=== PATIENT | male | born 1970 | race Caucasian/White ===

== ENCOUNTER 2018-04-10 13:13 | Inpatient (IN) | payer MEDICAID ==
[2018-04-10 14:31] LABS: PLATELET COUNT 309 10^3/uL (150-400)
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
--- NOTE | 2018-04-11 09:48 | ASMTTCLDSP ---
TLC Discharge Disposition Disposition: Answers: Admit Disposition Notes: Notes: Admit 3N. Discharge Concerns/Recommendations: Notes: In consultation with [facility] ED physician, Raphael Worthington MD and on-call psychiatrist, Malik Nuno MD, both concurred that pt appears to meet 27-65 criteria requiring psychiatric hospitalization as pt appears to be at risk of harm to self/gravely disabled due to a mental illness condition. Pt was given the 3N prohibited belongings list while in the ED. Was patient given the Answers: Yes Inpatient Behavioral Health Prohibited Belongings List while in the ED? For inpatient Malik Nuno MD admission, the following psychiatrist agreed to accept patient for admission to Behavioral Health ([facility]): Type of Hold: Answers: M1/72-hour Hold Hold initiated by: Answers: Other Notes: [facility] Clinician Date Signed: 04/11/2018 09:48 AM Electronically Signed By:Grant Calzada
[2018-04-11] MEDS ORDERED: MAG HYDROX/AL HYDROX/SIMETH 30 ML UDCUP PO PRN (11:48)
[2018-04-11] MEDS ORDERED: OLANZapine DISINTEGR 10 MG TAB PO PRN (11:48)
[2018-04-11] MEDS ORDERED: ACETAMINOPHEN 325 MG TAB PO PRN (11:48)
[2018-04-11] MEDS ORDERED: MAGNESIUM HYDROXIDE 30 ML UDCUP PO PRN (11:48)
[2018-04-11] MEDS ORDERED: PALIPERIDONE 9 MG TAB.ER PO ONE (11:49)
[2018-04-11] MEDS ORDERED: PALIPERIDONE 3 MG TAB.ER PO ONE (12:30)
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
[2018-04-11] MEDS: NICOTINE POLACRILEX 2 MG GUM B PRN (12:56)
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
[2018-04-11] MEDS ORDERED: DIVALPROEX ER 500 MG TAB PO SCH (21:00)
[2018-04-12] MEDS: NICOTINE POLACRILEX 2 MG GUM B PRN (02:19)
[2018-04-12 06:30] VITALS: BP 127/64
--- NOTE | 2018-04-12 08:28 | SOAPPROG ---
SOAP Progress Note Assessment/Plan: Assessment: Schizoaffective disorder, bipolar type, complicated by substance use and non- adherence to treatment. Stimulant use disorder, severe. Cannabis use disorder , severe. Non-adherence to medical treatment. Homelessness. No improvement noted. (see subjective/objective note). Patient is not safe to discharge at this time as patient continues to exhibit signs of psychosis, and express psychosis symptoms. Patient requires continued inpatient care because of current psychosis, and requires inpatient level of care to stabilize in order to no longer be a danger to himself and gravely disabled due to mental illness. Patient currently expressing command auditory hallucinations to not eat and to kill himself. Patient could benefit from continued inpatient hospitalization for crisis stabilization, safety, and medication evaluation. Plan: (1) Psychotropic medications: After reviewing options, risks, and benefits patient agrees to continue current medications. No medication changes at this time as more time is needed to determine ongoing tolerability and efficacy. Plan is to continue to observe patient for response and side effects from medications, and ongoing monitoring and evaluation. (2) Review with patient informed consent and recommendations for psychotropic medication treatment listed below (3) Labs: no additional labs at this time (4) Therapy: continue milieu and group therapy (5) Further investigation including gathering information from patients relatives and review of past case records to inform treatment plan. (6) Safety/Wellness plan and follow-up outpatient appointments to be established prior to discharge. Next steps are for patient to meet with care transition manager to plan a safe discharge plan and establish outpatient services for ongoing treatment. (7) Confer with inpatient treatment team regarding treatment plan. (8) Legal status: M1, to sign in voluntary when M1 expires (9) Consider discharge next week if patient is in stable condition, safe, and has a safe discharge plan. (10) Substance abuse interventions: methamphetamine and cannabis (11) Nursing care orders to encourage fluids and nourishment PSYCHOTROPIC MEDICATION TREATMENT INFORMED CONSENT and RECOMMENDATIONS: Review nature of condition, diagnosis, and prognosis. Review nature and purpose of psychotropic medication treatment. Review type of psychotropic medications being ordered. Review risk and benefits of psychotropic medication treatment. Review probable length of time patient will need to take medications. Review risk and benefits of not undergoing psychotropic medication treatment. Review alternative treatments to psychotropic medications. Review psychotropic medications contraindications, drug-drug interactions, side effects, and importance of reporting any side effects to a psychiatric provider or nurse during inpatient hospitalization, and upon discharge to patients psychiatric outpatient provider, primary care provider, or other health managed care analyst. Review importance of asking a nurse, psychiatric provider, or primary care provider any questions or problems concerning the psychotropic medications. Verify patient understands the information that has been provided, and understands, accepts, and agrees to psychotropic medications. Review patients safety plan and importance of patient to report to staff while hospitalized if patient is ever a danger to self/others, or unable to care for self, and upon discharge, the importance for patient to contact [facility] or [facility], or go to the nearest emergency room, if patient is ever a danger to self/others, or unable to care for self. Recommend that upon discharge patient establish medication management treatment with a psychiatric provider, establishes routine therapy appointments, and follow-up with primary care provider. Verify patient understands and agrees to these recommendations. 04/12/18 08:28 Subjective: Following up with patient for evaluation of psychosis and safety. Patient reports, "I am okay, I do not want to eat breakfast because the food is poisoned." Patient reports command auditory hallucinations telling him not to eat because food is poisoned. Patient states command hallucinations telling him to "just end it, get it over with, and kill yourself." Patient expresses the following psychiatric symptoms auditory hallucinations. Patient reports taking medications as prescribed, and describes response to medications as poor. Patient does not report undesirable side effects from the medications, and agrees to continue current medications. Patient reports appetite as poor, and reports he has not eaten since his admission yesterday afternoon. Patient describes getting 8 hours of sleep. Objective: Vital Signs Temp Pulse Resp BP Pulse Ox 36.8 C 101 H 15 127/64 H 94 04/12/18 06:00 04/12/18 06:00 04/12/18 06:00 04/12/18 06:00 04/12/18 06:00 NURSING REPORT: Consulted with nursing for update on patients progress in treatment. Nurses report patient is not engaged in treatment, is withdrawn to room, is not attending groups, slept 10 hours, expresses the following psychiatric symptoms: auditory hallucinations, paranoia; exhibits the following psychiatric symptoms: paranoid, withdrawn; is not eating any meals (patient has not eaten any meals since arriving on the unit), is agreeable to medications and taking as prescribed with no report of side effects, with no s/s of EPS/ akathisia, and denies SI/HI, denies visual hallucinations, and denies delusions. Reports auditory hallucinations to not eat because food is poisoned. DIRECTOR EMPLOYMENT UPDATE: currently setting up OP appointments. MSE: The patient is an under-nourished male looking older than chronological age. Attire is inappropriate and dress is hospital garb, and is disheveled. Grooming status is inappropriate and disheveled. Ambulation is independent. Gait is normal and coordinated. Posture is normal and relaxed. Eye contact is appropriate, and adequate. Motor activity is appropriate with purposeful, organized, coordinated movements; with no involuntary movements. Attitude is uncooperative and guarded. Patient appears disinterested and does not relate well to this interviewer. Language production is unspontaneous. Rate is hesitant. Latency of response is prolonged, with sad tone, and low volume, and amount is sparse. Articulation is clear. Patient reports mood as okay with constricted, blunted, flat, incongruent and inappropriate affect. Patients thought process is non-linear, disorganized, illogical. Associations are loose. Patient does report suicidal thoughts (command hallucinations). Patient reports auditory, denies visual hallucinations. Patient reports paranoid delusions regarding food being poisoned. Patient does not appear to be attending to internal stimuli. Patients attention and concentration are poor. Patient is oriented to person, place, time, and situation. Patients insight is poor. Patients judgment is poor. No evidence of gross cognitive dysfunction at any point during the interview. No evidence of apparent dysfunction in recent or remote memory. SUBSTANCE ABUSE BRIEF INTERVENTION: Brief intervention regarding the risks of methamphetamine and cannabis abuse is provided to patient with goal to reduce the risk of harm that could result from the continued use of methamphetamine and cannabis, with the general aim to investigate the problem, raise awareness of problem, develop a solution with the patient, recommend a specific change or activity, and motivate the patient toward change. Assess substance abuse behavior and give supportive advice about harm reduction, recommend a reduction in hazardous/at-risk consumption patterns, and facilitate referrals for additional specialized treatment with dog day care attendant. Intermediate goal is for the patient to quit use and attend OP substance abuse treatment. Intervention focus on intermediate goals to allow for more immediate success in the treatment process to keep the patient motivated. Review following with patient: Cannabis use risks: Short-term use: impaired short-term memory, impaired motor coordination, altered judgement, in high doses paranoia and psychosis. Long-term use addiction, diminished life satisfaction and achievement, symptoms of chronic bronchitis, and increased risk of chronic psychosis disorders if predisposition to such disorders. In withdrawal anger, aggression irritability, anxiety and nervousness, decreased appetite or weight loss, restlessness, and sleep difficulties with strange dreams. Methamphetamine use risks: Short-term: insomnia, irritability, aggressive behavior, hallucinations, delusions, intellectual deficits, anxiety, depression , convulsions, damage to blood vessels in the brain causing strokes, high fevers , collapse of the circulatory system. Long-term: damage to nerve pathways, maybe irreversibly; overstimulation to dopamine impairing dopamine transport and reducing efficiency of dopamine receptors, the reward system becomes worn out, leading to inability to experience pleasure for years. - Time Spent With Patient Time Spent With Patient: 15 minutes, met with patient individually. - Pending Discharge Pending Discharge Within 24 Hours: No Pending Discharge Within 48 Hours: No ICD10 Worksheet Patient Problems: Problems Problem Status Onset Acute psychosis Acute Cannabis use disorder, severe, dependence Acute Homelessness Acute Stimulant use disorder Acute Schizoaffective disorder, bipolar type Chronic
[2018-04-12] MEDS ORDERED: PALIPERIDONE 3 MG TAB.ER PO SCH (09:00)
--- NOTE | 2018-04-12 09:12 | ASMTBHMTP ---
Master Treatment Plan Master Treatment Plan Answers: Depressed Mood with for: Suicidal Ideation Date: 04/12/2018 Diagnosis on Admission: Schizoaffective Disorder, Bipolar Type 295.70 (F25.0) Expected length of stay: 3-5 days Reason for admission: Notes: The patient stated, "Suicidal; ending my life... cutting." He endorsed current SI rating himself 10/10. He denied HI rating himself 0/10. The patient reported auditory hallucinations, stating "I'm hearing voices; they tell me all kinds of things... End your life...There is poison in the food;" he rated AH 8/10. The patient endorsed feeling anxiety "a little" ad depression rating himself a 10/10. The patient reported that he has been off medication for the past few weeks; he stated that he recalls being prescribed Clozaril, unknown dosage. He can't remember the other names of his medications and reported having been on many different psychiatric medications throughout his life. Patient's stated presenting problems: Notes: The patient is refusing to eat; he has not eaten since he arrived on the unit. He reported being discourage by . He stated, "All kinds of life issues" including a "sore lymphnode" which is causing the patient pain when he swallows. The nurse and FINANCIAL REPORT SERVICE SALES AGENT have been notified and a consult requested. The patient reported having lived a the homeless care home prior to admission, he stated, "I don't want to go back to the care home at least not immediately because everyone is talking about me and plotting against me. There are too many people at the care home and I'm having a hard time; I can't think. I want to get this out of my system otherwise it will be the same old thing." Patient's goals for treatment: Notes: The patient stated, "Hopefully, I'll get medications that will work and make me feel better and then I can go to respite after this." Patient's strengths: Notes: The patient stated, "I don't think I have strengths." CC discussed with patient their motivation and willingness for treatment. Identify supports outside of hospital: Notes: The patient stated, "No; I don't have any family." Discharge criteria: Notes: Suicidal ideation will resolve and patient will have plan to safely manage recurrent suicidal ideation. Initial disposition plan/considerations: Notes: The patient stated, "I would like to go to respite for a few weeks to try and find a place to rent with my social security." Master Treatment Plan Required Signatures Psychiatrist signature: Answers: Psychiatrist: RN on-shift signature: Answers: RN: Patient signature: Answers: Patient: Date Signed: 04/12/2018 09:11 AM Electronically Signed By:Sonia Hummel
--- NOTE | 2018-04-12 19:45 | BDS ---
REASON FOR ADMISSION: From the ED note dated 04/10/2018, the patient presented to the ED on an M1 Psychiatric Hold from [facility]. The patient has been off his medications for the treatment of schizoaffective disorder. The patient reported command hallucinations to kill himself. The patient denied drug and alcohol use. The patient was admitted involuntarily on an M1 Hold due to being gravely disabled due to a mental illness. The patient was admitted for safety, crisis stabilization, and medication evaluation. ADMITTING DIAGNOSES: 1. Schizoaffective disorder, bipolar type. 2. Stimulant use disorder, severe. 3. Cannabis use disorder, severe. 4. Homelessness. ADMISSION PHYSICAL EXAM: The patient was seen by Dr. Guadarrama on 04/11/2018, for an Internal Medicine consultation for medical clearance for inpatient Behavioral Health stay. Dr. Guadarrama reported he saw no medical contraindications to the patient's continued stay in the Inpatient Behavioral Health unit or to any psychiatric medications and procedures. For further details, please refer to Dr. Guadarrama's Internal Medicine consultation note dated 04/11/2018. ADMISSION LABS: CBC from 04/10/2018, within normal limits. Chemistry from , within normal limits. Fasting lipid panel from 04/10/2018, within normal limits. Hemoglobin A1c from 04/10/2018, was 5.7, within normal limits. Fasting lipid panel from 04/10/2018, within normal limits except LDL cholesterol calculated was elevated at 104. TSH from 04/10/2018, was 1.510. Toxicology screen from 04/10/2018, was negative for all substances of abuse, and negative for ethyl alcohol. MAJOR PROCEDURES OR TESTS: None. HOSPITAL COURSE: The most prominent symptoms and behaviors while the patient was here were patient reported auditory command hallucinations and paranoid delusions. The patient reported that he would not eat because he thought the food was poisoned. The patient was withdrawn to his room. Treatment modalities utilized were milieu and group therapy. Invega 6 mg p.o. daily was started to target psychosis. It was tolerated with no report of side effects. Depakote ER 1500 mg p.o. at bedtime was started to target mood symptoms and was tolerated with no report of side effects. During the course of the hospital stay, the patient continued to not eat. On a further evaluation, the patient reported that he had discomfort when swallowing due to a neck mass. The patient reported that this mass had started about a week ago, and has been rapidly getting larger and making it more difficult and uncomfortable for him to swallow. Patient was referred to [facility] and referred for a surgical consultation for the neck mass that was firm and tender. The patient is a heavy smoker, and is at risk for head and neck cancer , as well as lung cancer. The patient was referred to Surgery for biopsy. The patient had no signs and symptoms of head or neck infection. The patient was discharged from [address] and was transferred to [facility] for the surgical consult by [facility]. CONDITION AT DISCHARGE: At time of discharge, the patient was continuing to complain of auditory hallucinations and paranoid thoughts regarding his food being poisoned. The patient was withdrawn to his room. At time of transfer, the patient's level of risk was low. MENTAL STATUS EXAM: The patient is an undernourished male, looking older than chronological age. Attire is appropriate. Dress is hospital garb. Grooming status is inappropriate and disheveled. Ambulation is independent. Gait is normal and coordinated. Posture is abnormal and slumped. Eye contact is inappropriate and avoided. Motor activity is underactive however, movements are purposeful, organized, coordinated with no involuntary movements noted. Attitude is uncooperative and guarded. The patient appears disinterested and distractible, and does not relate well to this interviewer. Language production is unspontaneous, rate is hesitant. Latency of response is prolonged with sad tone and low volume. Amount is sparse. Articulation is fairly clear. Patient reports mood as okay with constricted, flat, inappropriate and incongruent affect. The patient's thought process is nonlinear and illogical. The patient does not report suicidal or homicidal thoughts, ideas, or plans. The patient does report auditory command hallucinations. The patient denies visual hallucinations. Patient reports delusions, paranoid in type, specifically regarding his food being poisoned. The patient does not appear to be attending to internal stimuli. The patient is oriented to person, place, time, and situation. The patient's attention and concentration are poor. The patient's insight and judgment are poor. There is no evidence of gross cognitive dysfunction at any point during the interview and no evidence of apparent dysfunction in recent or remote memory noted. The patient does not report undesirable side effects from current medications. DISCHARGE DIAGNOSIS: 1. Schizoaffective disorder, bipolar type. 2. Stimulant use disorder, severe. 3. Cannabis use disorder, severe. 4. Homelessness. 5. Rule out malingering. CURRENT MEDICATIONS: Patient to continue Invega 6 mg p.o. daily and Depakote 1500 mg p.o. at bedtime. DISPOSITION: The patient left hospital and will be transferred to [facility] for a surgical consult for a neck mass. The patient did leave independently and voluntarily. FOLLOWUP: quality improvement coordinator reports the appropriate outpatient follow-up services have been established and outpatient appointments have been scheduled. The patient received written instructions with times and dates of outpatient follow-up appointments. The following follow-up recommendations were provided to the patient at discharge: Continue psychotropic medications as prescribed and attend appointments as scheduled. Report any side effects to a psychiatric outpatient provider, a primary care provider, or other health child care supervisor. Address any questions or problems concerning the psychotropic medications with a psychiatric outpatient provider, a primary care provider, or other health child care supervisor. Contact [facility] or [facility], or go to the nearest emergency room, if you are ever a danger to yourself/others, or unable to care for yourself. As soon as possible, establish a routine medication management treatment with a psychiatric provider, establish routine therapy appointments, and follow-up with a primary care provider. LEGAL COURSE: The patient was admitted on an M1 Hold. The patient was transferred to [facility] for a surgical consult for neck mass. ATTITUDE AT TIME OF DISCHARGE: The patients attitude was positive at time of discharge, and patient reports looking forward to discharging today. The patient reports he feels safe to discharge, is no longer a danger to himself or others, is in stable condition, and contracts for safety. Patient states he will continue medications as prescribed, and establish medication management treatment with an outpatient provider after discharge. Patient reports he understands the information that has been provided to him, and he understands, accepts, and agrees to psychotropic medications. Patient describes internal protective factors as the coping skills he has learned while hospitalized here, and he plans to continue to practice these coping skills after discharge. LABS AND STUDIES: There were no pending labs or studies at time of discharge. ADVANCED DIRECTIVES: There were no advance directives on file, and patient was full code during this hospitalization. /[id number]/MODL MTDD
[2018-04-13] MEDS ORDERED: PALIPERIDONE PALMITATE 234 MG/1.5 ML SYR IM ONE (09:00)
--- NOTE | 2018-04-13 10:47 | PDMN ---
Medical Necessity Medical necessity: Pt meets IP criteria per [employer] & MCG B-[id number]; est los >2 mn for eval/tx of schizoaffective disorder, bipolar type; pt on M1 hold for suicidal ideation; admit for further monitoring/safety, med management & stabilization; hx homelessness; per H&P & order 04/11/18
[2018-04-16] MEDS ORDERED: PALIPERIDONE PALMITATE 156 MG/ML SYR IM ONE (09:00)
== END 2018-04-12 18:40 | disposition still patient (30) | DRG 750 ==
LOC: EDUNIT# → BBEH 04-11 10:30
PROVIDERS: ADMIT Psychiatry & Neurology Psychiatry; ATTEND Psychiatry & Neurology Psychiatry
DX: F25.0 Schizoaffective disorder, bipolar type (principal); Z59.0 Homelessness; B19.20 Unspecified viral hepatitis C without hepatic coma; R22.1 Localized swelling, mass and lump, neck; F15.90 Other stimulant use, unspecified, uncomplicated; F12.90 Cannabis use, unspecified, uncomplicated; I10 Essential (primary) hypertension; F17.200 Nicotine dependence, unspecified, uncomplicated
CPT/HCPCS: 80305; G0480

== ENCOUNTER 2018-04-12 12:12 | Inpatient (IN) | payer MEDICAID ==
--- NOTE | 2018-04-12 12:25 | EDPHY ---
H & P Time Seen by Provider: 04/12/18 12:18 HPI/ROS: CHIEF COMPLAINT: Left neck mass x1 week HISTORY OF PRESENT ILLNESS: 47-year-old male currently on an M1 hold, residing at [address] [place] [address], sent to the emergency department for evaluation of 1 week of left submandibular mass described as tender, nonfluctuant, nondraining. Positive mild sore throat. Positive poor dentition history. Denies history of trauma, denies strangulation, denies injection in this area. Denies headache. Denies nausea or vomiting. Denies change in voice. PRIMARY CARE PROVIDER: REVIEW OF SYSTEMS: 10 systems reviewed and negative with the exception of the elements mentioned in the history of present illness PAST MEDICAL & SURGICAL HISTORY: Schizoaffective disorder and bipolar mood disorder currently on an M1 hold admitted at [address] SOCIAL HISTORY:History of cannabis use . Remote history of IV drug use. No known history of HIV. PHYSICAL EXAM (Prior to examination, patient consented to physical exam, hands were washed and my usual and customary physical exam procedures followed) 1) GENERAL: Well-developed, well-nourished, alert and oriented. Appears to be in no acute distress. 2) HEAD: Normocephalic, atraumatic 3) HEENT: Pupils equal, round, reactive to light bilaterally. Sclera anicteric. Nasopharynx, oropharynx, clear, no lesions. Moist Mucous membranes. Poor dentition. No tonsillar enlargement or exudate. No trismus no drooling. No sub lingual tenderness. No submental tenderness. Approximately 4 cm x 2 cm left submandibular masses noted. This is tender. It is non fluctuant. There are no overlying skin changes to suggest cutaneous abscess or cellulitis. Ears bilaterally with normal tympanic membranes. 4) NECK: Full range of motion, no meningeal signs. 5) LUNGS: Clear auscultation bilaterally, no wheezes, no rhonchi, no retractions. 6) HEART: Regular rate and rhythm, no murmur, no heave, no gallop. 7) ABDOMEN: No guarding, no rebound, no focal tenderness, negative McBurney's, negative Orozco's, negative Rovsing's, negative peritoneal sign, 8) MUSCULOSKELETAL: Moving all extremities, no focal areas of tenderness, no obvious trauma. No peripheral edema or discoloration. 9) BACK: No CVA tenderness, no midline vertebral tenderness, no fluctuance, no step-off, no obvious trauma, no visual or palpable abnormality. 10) SKIN: No rash, no petechiae. 11) Psychiatric: Patient is oriented X 3, there is no agitation. DIFFERENTIAL DIAGNOSIS: In no particular order including but not limited to adenopathy, Ludwigs Angina, abscess, peritonsillar abscess , malignancy - Medical/Surgical History Hx Asthma: No Hx Chronic Respiratory Disease: No Hx Diabetes: No Hx Cardiac Disease: No Hx Renal Disease: No Hx Cirrhosis: No Hx Alcoholism: No Hx HIV/AIDS: No Hx Splenectomy or Spleen Trauma: No Other PMH: hep c, hypertension, iv drug addiction, gerd, depression - Social History Smoking Status: Heavy smoker Constitutional: Initial Vital Signs Temperature (C) 36.8 C 04/12/18 12:23 Heart Rate 101 H 04/12/18 12:23 Respiratory Rate 18 04/12/18 12:23 Blood Pressure 141/107 H 04/12/18 12:23 O2 Sat (%) 96 04/12/18 12:23 O2 Delivery Mode Room Air Allergies/Adverse Reactions: No Known Allergies Allergy (Verified 04/10/18 13:24) Home Medications: Medication Instructions Recorded Sertraline HCl [Zoloft 50mg (*)] 50 mg PO DAILY 04/11/18 risperiDONE [Risperidone] 3 mg PO HS 04/11/18 Medical Decision Making - Diagnostics Imaging Results: Imaging Impressions Chest X-Ray 04/12/18 13:54 Impression: Prominence of perihilar interstitial markings and peribronchial cuffing. Findings are nonspecific but can be seen with bronchitis, reactive airway disease, or viral process. ED Course/Re-evaluation: 1224 pm: Patient has a left submandibular mass. Will obtain CT angiography of the neck as well as i-STAT creatinine. I saw this patient independently based on established practice protocols. Patient's airway is patent. No evidence of impending airway compromise. Care of patient under supervision of secondary supervising physician Dr Tres Romero with whom I discussed case. 1:45 p.m.: Consultation with staff radiologist regarding the patient's CT of the neck. He is noted to have multiple lesions concerning for possible malignancy. Plan will be admission, consultation with ENT Oncology. He remains on an M1 hold. 1:53 p.m.: Phone consultation with Dr. Murphy, oncology who agrees to consult the patient, requests that hospitalist contact him after evaluating the patient and he will plan on seeing the patient tomorrow. 2:00 p.m.: Consultation with hospitalist Piper, admit to Dr. Juancarlos Ford. Patient still on an M1 hold , will need to go to the intensive care unit. 2:03 p.m.: consultation with otolaryngology GILDARDO Moseley will consult for ENT - Data Points Laboratory Results: Laboratory Results 04/12/18 12:35 04/12/18 12:35 04/12/18 04/12/18 04/12/18 12:44 12:35 12:35 WBC 6.62 10^3/uL 10^3/uL (3.80-9.50) RBC 5.27 10^6/uL 10^6/uL (4.40-6.38) Hgb 16.0 g/dL g/dL (13.7-17.5) POC Hgb 16.3 gm/dL gm/dL (13.7-17.5) Hct 46.3 % % (40.0-51.0) POC Hct 48 % % (40-51) MCV 87.9 fL fL (81.5-99.8) MCH 30.4 pg pg (27.9-34.1) MCHC 34.6 g/dL g/dL (32.4-36.7) RDW 12.4 % % (11.5-15.2) Plt Count 300 10^3/uL 10^3/uL (150-400) MPV 9.9 fL fL (8.7-11.7) Neut % (Auto) 67.3 % % (39.3-74.2) Lymph % (Auto) 21.6 % % (15.0-45.0) [place] % (Auto) 10.4 % % (4.5-13.0) Eos % (Auto) 0.0 % L % (0.6-7.6) Baso % (Auto) 0.5 % % (0.3-1.7) Nucleat RBC Rel Count 0.0 % % (0.0-0.2) Absolute Neuts (auto) 4.46 10^3/uL 10^3/uL (1.70-6.50) Absolute Lymphs (auto) 1.43 10^3/uL 10^3/uL (1.00-3.00) Absolute Monos (auto) 0.69 10^3/uL 10^3/uL (0.30-0.80) Absolute Eos (auto) 0.00 10^3/uL L 10^3/uL (0.03-0.40) Absolute Basos (auto) 0.03 10^3/uL 10^3/uL (0.02-0.10) Absolute Nucleated RBC 0.00 10^3/uL 10^3/uL (0-0.01) Immature Gran % 0.2 % % (0.0-1.1) Immature Gran # 0.01 10^3/uL 10^3/uL (0.00-0.10) POC Sodium 141 mEq/L mEq/L (135-145) Sodium 140 mEq/L mEq/L (135-145) POC Potassium 4.2 mEq/L mEq/L (3.3-5.0) Potassium 4.5 mEq/L mEq/L (3.3-5.0) POC Chloride 102 mEq/L mEq/L (97-110) Chloride 101 mEq/L mEq/L (97-110) Carbon Dioxide 29 mEq/l mEq/l (22-31) Anion Gap 10 mEq/L mEq/L (8-16) POC BUN 12 mg/dL mg/dL (7-23) BUN 14 mg/dL mg/dL (7-23) Creatinine 1.0 mg/dL mg/dL (0.7-1.3) POC Creatinine 1.0 mg/dL mg/dL (0.7-1.3) Estimated GFR > 60 Glucose 112 mg/dL H mg/dL (70-100) POC Glucose 108 mg/dL H mg/dL (70-100) Calcium 9.9 mg/dL mg/dL (8.5-10.4) Medications Given: Acetaminophen (Tylenol) 650 mg PO Q4HRS PRN PRN Reason: Pain, Mild/Fever, Can Take PO Stop: 10/09/18 14:38 Last Admin: 04/12/18 15:25 Dose: 650 mg Point of Care Test Results: Chemistry 04/12/18 12:44 POC Sodium 141 mEq/L mEq/L (135-145) POC Potassium 4.2 mEq/L mEq/L (3.3-5.0) POC Chloride 102 mEq/L mEq/L (97-110) POC BUN 12 mg/dL mg/dL (7-23) POC Creatinine 1.0 mg/dL mg/dL (0.7-1.3) POC Glucose 108 mg/dL H mg/dL (70-100) ISTAT H&H 04/12/18 12:44 POC Hgb 16.3 gm/dL gm/dL (13.7-17.5) POC Hct 48 % % (40-51) Departure - Departure Disposition: [facility] Inpatient Acute Clinical Impression: Schizoaffective disorder, bipolar type, Neck malignant neoplasm Condition: Fair
[2018-04-12] MEDS ORDERED: IOPAMIDOL (ISOVUE-300) 100 ML BTL ONE ×2 (12:51→16:47)
[2018-04-12 14:27] LABS: PLATELET COUNT 300 10^3/uL (150-400)
[2018-04-12] MEDS ORDERED: ONDANSETRON 4 MG/2 ML VIAL IVP PRN (14:39)
[2018-04-12] MEDS ORDERED: ONDANSETRON DISINTEGRATING 4 MG TAB PO PRN (14:39)
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
[2018-04-12] MEDS: ACETAMINOPHEN 325 MG TAB PO PRN (15:25)
--- NOTE | 2018-04-12 18:45 | GCON ---
ENT CONSULTATION DATE OF CONSULTATION: 04/12/2018 REFERRING PHYSICIAN: Chato Ford MD REASON FOR CONSULTATION: Left neck mass. HISTORY: The patient is a 47-year-old man, who states that approximately 1 week ago he began noticin g a sore throat on the left side and a lump on the left side of the neck. It hurts every time he swa llows. He denies any ear pain. He denies any shortness of breath. He does state that he has lost s ome weight, but he has no idea how much as he has not weighed himself. He just states that he feels like he is getting skinnier. The patient has a significant history of smoking, smoking 1 pack of cig arettes a day for many years. He was admitted to the hospital and placed in the intensive care unit on observation due to concerns of suicidal ideation. PAST MEDICAL HISTORY: History of schizoaffective disorder and bipolar disorder. He was admitted on 04/11 to the psychiatric inpatient campus at [place] and started on antipsychotic medications. Acco rding to the admission report, he told the admitting doctor he had lost 25 pounds over the last month , which he had attributed to lack of access to food. He has had some night sweats, but no fevers. H e mentioned a [id number] smoking history. PHYSICAL EXAM: GENERAL: The patient is a thin man, awake, alert, and very pleasant throughout the e valuation. EAR EXAM: Normal bilaterally. NASAL EXAM: Anteriorly clear. ORAL CAVITY EXAM: Notabl e for advanced dental decay. Tongue and floor of mouth are normal with no swelling or abnormalities. PHARYNGEAL EXAM: Shows some watery edema of the soft tissues around the left tonsil and slight asy mmetry of the left tonsil versus right. Normal sensation of the palate, tonsils, and tongue. Normal tongue mobility. No ulcerations are seen. NECK EXAM: The patient has a 2 x 2 cm round hard mass i n level 3 of the left side of the neck. It is mobile. No other adenopathy is palpable. Flexible endoscopy was then performed of the patient's nose. The flexible endoscope was passed throu gh both nostrils. There were no signs of nasal lesions, infection, or polyps. Nasopharyngeal exam w as normal bilaterally, as were the fossae of Rosenmuller. Hypopharynx and larynx exam was notable fo r fullness of the left tonsil and left hypopharyngeal wall, but again no ulceration was seen. The ep iglottis and vallecula were normal. Base of tongue was slightly full on the left edge, but otherwise normal. Laryngeal exam showed healthy-appearing vocal cords, which moved well on phonation and resp iration. IMAGING: CT scan images were examined by me. These showed evidence of a mass in the left tonsil, as well as the enlarged lymph node. The report stated multiple enlarged lymph nodes, with the largest being 16 x 16 x 27 mm. It also mentions bilateral tonsillar masses and left aryepiglottic fold being suspicious for neoplasm. However, I felt that the problem was related to the left tonsil and left l ateral hypopharyngeal wall, as well as the previously mentioned lymph node. 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 This does not appear to be an infectious process. At this point, I think we need to treat it as if it is a malignancy until proven otherwise. Given the size of the lymph nod e, I think it will be beneficial to obtain a core needle biopsy with ultrasound guidance. This can b e done as an inpatient with the radiology department. We will see if we can get this ordered. Altho ugh I do not have much experience with this dreaded computer program and system, I will do my best. We have already called and left a voice message with the radiology department to try to get this done tomorrow. Thank you so much for this consultation. /[id number]/MODL
[2018-04-12] MEDS: DIVALPROEX ER 500 MG TAB PO SCH (21:17)
[2018-04-13] MEDS: ACETAMINOPHEN 325 MG TAB PO PRN ×2 (08:02→21:04)
[2018-04-13] MEDS: PALIPERIDONE 3 MG TAB.ER PO SCH (08:04)
[2018-04-13] MEDS ORDERED: PNEUMOCOCCAL 0.5ML VACCINE VIAL IM ONE ×2 (08:21→11:30)
--- NOTE | 2018-04-13 09:34 | HOSPPROG ---
Hospitalist Progress Note Assessment/Plan: Neck mass - concern for malignancy. Considered tuberculous lymphadenopathy with pt's homeless status and reported h/o fevers and night sweats, though no e/ o prior TB, neg CT chest and afebrile here with nl wbc's. -biopsy today -check HIV -speech / swallow eval, pt tolerated pot roast last night Schizoaffective / bipolar - He is neither suicidal nor homicidal and was discharged from [facility] unit without plans for immediate return, now stable on meds -cont Invega, Depakote -D/C the M1 hold Homelessness - TB skin test Full code Dispo - cont inpt. Will keep overnight to ensure stability after neck biopsy. Subjective: Pt feels well. He was able to tolerate pot roast last night. He thinks he had fevers/chills at [facility] unit, but no fevers documented and he remains afebrile here. Denies neck pain. He has a significant tobacco history. No CP or SOB. Objective: Vital Signs Temp Pulse Resp BP Pulse Ox 36.8 C 86 22 H 94/72 L 97 04/13/18 07:57 04/13/18 07:57 04/13/18 07:57 04/13/18 07:57 04/13/18 07:57 04/12/18 04/13/18 04/14/18 05:59 05:59 05:59 Intake Total 1000 Balance 1000 - Physical Exam Constitutional: no apparent distress Eyes: PERRL Ears, Nose, Mouth, Throat: moist mucous membranes, other (left neck with firm palpable LN, which is not very mobile) Cardiovascular: regular rate and rhythym, no murmur, rub, or gallop Respiratory: no respiratory distress, clear to auscultation Gastrointestinal: normoactive bowel sounds, soft, non-tender abdomen Skin: warm Musculoskeletal: full muscle strength Neurologic: AAOx3 Psychiatric: interacting appropriately ICD10 Worksheet Patient Problems: Problems Problem Status Onset Neck malignant neoplasm Acute Schizoaffective disorder, bipolar type Chronic Acute psychosis Acute Cannabis use disorder, severe, dependence Acute Homelessness Acute Stimulant use disorder Acute
--- NOTE | 2018-04-13 10:33 | PDMN ---
Medical Necessity Medical necessity: Change to IP, as of 04/12/18, per MD; los >2 mn for ongoing management of L neck mass w/difficulty swallowing, weight loss, vocal changes, night sweats, occasional SOB & concern for malignancy; [facility] for [facility]ation; requiring close monitoring/further workup, ENT consult w/neck biopsy, Oncology consult, med management/ stabilization & therapy; hx schizoaffective/bipolar disorder, homelessness
[2018-04-13] MEDS ORDERED: TUBERCULIN (PPD) 5 TU/0.1 ML SYRINGE ID ONE ×2 (10:35→14:15)
[2018-04-13] MEDS: NICOTINE POLACRILEX 2 MG GUM B PRN ×5 (10:48→23:56)
[2018-04-13 12:25] LABS: HIV TYPE 1 AND 2 NEGATIVE (NEGATIVE)
[2018-04-13] MEDS ORDERED: TUBERCULIN,PURIF/PROT/DERIV. 1 ML MDV ID ONE (14:15)
[2018-04-13] MEDS ORDERED: LIDOCAINE 1% 300 MG/30 ML SDV ONE (14:49)
--- NOTE | 2018-04-13 16:34 | PDCONSULT ---
[facility] Note: Hematology/Oncology Consultation Reason for consultation: Suspected cancer History of present illness: Juan Alberto is a 47-year-old male with a significant psychiatric history including schizoaffective disorder and bipolar disorder who I am seeing in consultation for suspected cancer. He originally is from [place] but most recently spent time in origin. Around 4 months ago he moved back to [place]. He has no family members around is there fairly dispersed. He has a longstanding history of depression, bipolar disorder and schizoaffective disorder which has led to multiple suicidal attempts. He has history of cutting and self-immolation. He was off of medications and had significant suicidal ideations and hallucinations. He was admitted to the [facility] for inpatient psychiatric treatment. He states that prior to admission for around 1-2 months he has had symptoms of neck discomfort. He also has had symptoms of dysphagia for the last 10 days. Around a week ago he noticed a mass within his left neck. He does have history of night sweats, subjective fevers, and a 25 lb weight loss over the last 2 months which she attributes to poor nutrition. Since being admitted he continues to have symptoms of auditory hallucinations and suicidal ideation. He was brought over to [facility] Emergency room for workup of the left neck mass. He had a CT of the neck completed 04/12/2018 that demonstrated a left tonsillar mass measuring 2.0 x 1.5 cm. There is also right tonsil with a complex smaller mass measuring 1.0 x 0.7 cm. There were multiple lymph nodes that were abnormal appearing in the left neck with 1 left jugulodigastric lymph node measuring 1.6 x 1.6 cm. He subsequently had a CT of the chest abdomen pelvis demonstrated is no evidence of disease. He has since undergone ultrasound-guided biopsy with core needle of the left neck. Past medical history: Depression Multiple suicidal attempts Bipolar disorder Schizoaffective disorder joint hepatitis C Past surgical history Skin grafting secondary to self-immolation Left arm and wrist surgeries related this self cutting. Social history Was previously living in a alf. Has a 20 pack-year history of smoking. Has occasional alcohol use. Does have 1. Amphetamine use in the past. Review of systems: 12 point review of system was obtained was otherwise negative Medications: Risperdal, sertraline Allergies: No known drug allergies Physical examination: New Temp Pulse Resp BP Pulse Ox 36.9 C 89 23 H 107/65 95 04/13/18 11:27 04/13/18 11:27 04/13/18 11:27 04/13/18 11:27 04/13/18 11:27 General: Pleasant male appears in no acute distress, thin HEENT: There is an abnormal appearing area within the left tonsil as compared to the right tonsil. Otherwise oropharynx is without any other lesions. Extraocular movements are intact. Pupils equal round reactive to light. Lymph: There is a left submandibular lymph node measuring 2cm is status post biopsy with bandaging. Cardiovascular: Regular rhythm no murmurs gallops or rubs pulmonary: Clear to auscultation bilaterally Abdomen: Soft nontender nondistended bowel sounds are present Extremities: No cyanosis clubbing or edema Skin: Left upper extremity with scars from previous self cutting. Skin grafting noted from prior self Immolation attempt Psych: Answers questions appropriately. Does endorse auditory hallucinations. Does endorse suicidal ideation. Is alert and oriented. Neuro: Alert and oriented x4. Moving all extremities equally. WBC 6.62 10^3/uL (3.80-9.50) 04/12/18 12:35 RBC 5.27 10^6/uL (4.40-6.38) 04/12/18 12:35 Hgb 16.0 g/dL (13.7-17.5) 04/12/18 12:35 POC Hgb 16.3 gm/dL (13.7-17.5) 04/12/18 12:44 Hct 46.3 % (40.0-51.0) 04/12/18 12:35 POC Hct 48 % (40-51) 04/12/18 12:44 MCV 87.9 fL (81.5-99.8) 04/12/18 12:35 MCH 30.4 pg (27.9-34.1) 04/12/18 12:35 MCHC 34.6 g/dL (32.4-36.7) 04/12/18 12:35 RDW 12.4 % (11.5-15.2) 04/12/18 12:35 Plt Count 300 10^3/uL (150-400) 04/12/18 12:35 MPV 9.9 fL (8.7-11.7) 04/12/18 12:35 Neut % (Auto) 67.3 % (39.3-74.2) 04/12/18 12:35 Lymph % (Auto) 21.6 % (15.0-45.0) 04/12/18 12:35 [place] % (Auto) 10.4 % (4.5-13.0) 04/12/18 12:35 Eos % (Auto) 0.0 % (0.6-7.6) L 04/12/18 12:35 Baso % (Auto) 0.5 % (0.3-1.7) 04/12/18 12:35 Nucleat RBC Rel Count 0.0 % (0.0-0.2) 04/12/18 12:35 Absolute Neuts (auto) 4.46 10^3/uL (1.70-6.50) 04/12/18 12:35 Absolute Lymphs (auto) 1.43 10^3/uL (1.00-3.00) 04/12/18 12:35 Absolute Monos (auto) 0.69 10^3/uL (0.30-0.80) 04/12/18 12:35 Absolute Eos (auto) 0.00 10^3/uL (0.03-0.40) L 04/12/18 12:35 Absolute Basos (auto) 0.03 10^3/uL (0.02-0.10) 04/12/18 12:35 Absolute Nucleated RBC 0.00 10^3/uL (0-0.01) 04/12/18 12:35 Immature Gran % 0.2 % (0.0-1.1) 04/12/18 12:35 Immature Gran # 0.01 10^3/uL (0.00-0.10) 04/12/18 12:35 POC Sodium 141 mEq/L (135-145) 04/12/18 12:44 Sodium 140 mEq/L (135-145) 04/12/18 12:35 POC Potassium 4.2 mEq/L (3.3-5.0) 04/12/18 12:44 Potassium 4.5 mEq/L (3.3-5.0) 04/12/18 12:35 POC Chloride 102 mEq/L (97-110) 04/12/18 12:44 Chloride 101 mEq/L (97-110) 04/12/18 12:35 Carbon Dioxide 29 mEq/l (22-31) 04/12/18 12:35 Anion Gap 10 mEq/L (8-16) 04/12/18 12:35 POC BUN 12 mg/dL (7-23) 04/12/18 12:44 BUN 14 mg/dL (7-23) 04/12/18 12:35 Creatinine 1.0 mg/dL (0.7-1.3) 04/12/18 12:35 POC Creatinine 1.0 mg/dL (0.7-1.3) 04/12/18 12:44 Estimated GFR > 60 04/12/18 12:35 Glucose 112 mg/dL (70-100) H 04/12/18 12:35 POC Glucose 108 mg/dL (70-100) H 04/12/18 12:44 Calcium 9.9 mg/dL (8.5-10.4) 04/12/18 12:35 Urine Opiates Screen NEGATIVE (NEGATIVE) 04/12/18 14:03 Urine Barbiturates NEGATIVE (NEGATIVE) 04/12/18 14:03 Ur Phencyclidine Scrn NEGATIVE (NEGATIVE) 04/12/18 14:03 Ur Amphetamine Screen NEGATIVE (NEGATIVE) 04/12/18 14:03 U Benzodiazepines Scrn NEGATIVE (NEGATIVE) 04/12/18 14:03 Urine Cocaine Screen NEGATIVE (NEGATIVE) 04/12/18 14:03 U Marijuana (THC) Screen NEGATIVE (NEGATIVE) 04/12/18 14:03 HIV 1&2 Antibody NEGATIVE (NEGATIVE) 04/13/18 11:00 04/12/2018 CT of the neck with contrast demonstrating a 2.0 x 1.5 cm mass in the left tonsil. There is a right tonsillar complex mass is smaller measuring 1.0 x 0.7 cm. Left aryepiglottic fold mass 1.2 by 1.1cm. There is a left neck lymph node measuring 2.7 x 1.6 x 1.6 cm. There is additional 5 smaller lymph nodes up to 1 cm in size within the left neck. Assessment and plan: Juan Alberto is a very pleasant 47-year-old male with a significant past psychiatric history is detailed above who now presents with a left neck mass. 1. Left neck mass: He does have a tonsillar lesion that is visualized on examination. He also has multiple left neck lymph nodes. He underwent ultrasound-guided biopsy of the left neck node. Will follow up on pathology. My differential currently includes head and neck squamous cell carcinoma of the oropharynx with the tonsil possibly being the primary. An underlying lymphoma also remains on the differential given his B symptoms. Given his underlying social situation psychiatric issues I would recommend he stay to finalized pathology. I will follow up with pathology tomorrow to see if I could get a preliminary read. 2. Suicide ideation: He likely will need to go back to a psychiatric facility following discharge. Will follow up with hospitalist team. This will present child is for treatment of his cancer whenever it may be. 3. Schizoaffective disorder: see #2. All questions were answered. He voiced understanding the plan appears appreciative of my care today.
[2018-04-13] MEDS: DIVALPROEX ER 500 MG TAB PO SCH (21:04)
[2018-04-14] MEDS: ACETAMINOPHEN 325 MG TAB PO PRN (05:18)
[2018-04-14] MEDS: NICOTINE POLACRILEX 2 MG GUM B PRN ×3 (05:19→14:58)
[2018-04-14] MEDS: PALIPERIDONE 3 MG TAB.ER PO SCH (10:36)
--- NOTE | 2018-04-14 10:41 | HOSPPROG ---
Hospitalist Progress Note Assessment/Plan: Neck mass - concern for malignancy. S/P biopsy yesterday, await pathology while inpt. Pt tolerating diet. No pain Schizoaffective / bipolar - He will return to inpt [facility] once plans are made regarding biopsy result. -cont Invega, Depakote -D/C to [facility] in 1-2 days Homelessness - TB skin test placed 04/13, needs to be read Sat or Sun. Full code Dispo - cont inpt. D/C back to inpt [facility] when biopsy results confirmed and oncology f/u determined. Subjective: Pt feels fine. No pain from neck biopsy. Denies SI or HI. No psychosis. Overall, he is doing well. Objective: Vital Signs Temp Pulse Resp BP Pulse Ox 36.6 C 75 16 108/71 96 04/14/18 05:20 04/14/18 07:55 04/14/18 07:55 04/14/18 07:55 04/14/18 07:55 Microbiology 04/13/18 14:55 Gram Stain - Final Neck - Tissue 04/13/18 14:55 Fungal Culture - Final Neck - Tissue 04/13/18 04/14/18 04/15/18 05:59 05:59 05:59 Intake Total 500 1400 236 Balance 500 1400 236 - Physical Exam Constitutional: no apparent distress Eyes: PERRL Ears, Nose, Mouth, Throat: moist mucous membranes, other (left neck mass unchanged) Cardiovascular: regular rate and rhythym Respiratory: no respiratory distress Gastrointestinal: normoactive bowel sounds Skin: warm Musculoskeletal: full muscle strength Neurologic: AAOx3 Psychiatric: interacting appropriately ICD10 Worksheet Patient Problems: Problems Problem Status Onset Neck malignant neoplasm Acute Schizoaffective disorder, bipolar type Chronic Acute psychosis Acute Cannabis use disorder, severe, dependence Acute Homelessness Acute Stimulant use disorder Acute
[2018-04-14 11:46] VITALS: BP 101/87
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
[2018-04-14] MEDS ORDERED: CALCIUM CARBONATE 500 MG CHEWABLE TAB PO PRN (14:39)
--- NOTE | 2018-04-14 15:53 | ASMTCASEMG ---
Living Arrangements What is your living Answers: Alone arrangement? Who do you live with? Type Of Residence What kind of residence do Answers: Homeless you live in? Discharge Plan Comments Coordination Status Comments Notes: Patient is a 47yo single male with a hx of schizoaffective disorder, bipolar disorder who presented on 04/11/18 with command hallucinations telling him to kill himself. Patient was admitted to inpatient psychiatry on [facility] and started on antipsychotic medications. Patient noted left neck swelling and some difficulty swallowing. CT scan showed a mass concerning for malignancy and patient was admitted to [facility] for left neck mass. We are currently awaiting results of the biopsy. CM will follow. Date Signed: 04/14/2018 03:51 PM Electronically Signed By:Sveta Hunt LCSW
--- NOTE | 2018-04-14 16:05 | ASMTDCNOTE ---
Case Management Discharge Discharge Order Complete? Answers: Yes Patient to Obtain Answers: Other Notes: [facility] inpatient psych Medications Transportation Arranged Answers: [facility] W/C Transport will Pick (Date 04/14/2018 12:00 AM & Time) Case Management Transport Answers: Yes Notes: [facility] - [facility] Form Complete Faxed Final Orders Answers: Yes Notes: [facility] 3N Family Notified Answers: No Notes: no family Discharge Comments Notes: Patient is being d/c'ed back to for psych support until his biopsy results return which will be early next week. The social work professor with behavioral health will need to set up follow up appointments for patient when he is ready for d/c if patient does not return to the hospital for further medical intervention. CM is available to coordinate with on addressing patient's medical needs. No further needs from acute care at this time. Date Signed: 04/14/2018 03:58 PM Electronically Signed By:Sveta Hunt LCSW
--- NOTE | 2018-04-14 19:11 | PDDCSUM ---
Discharge Summary Discharge Summary: Date of Admission: 04/12/2018 Date of Discharge: 04/14/2018 Discharge diagnoses: 1. Neck mass s/p biopsy, pathology pending, suspicion high for malignancy such as SCC 2. Schizophrenia / bipolar disorder with suicidal ideation Consultants: 1. Dr. Ramirez Murphy, Oncology Procedures: Biopsy of left neck mass Pending studies: pathology on biopsy, culture and cytology History and hospital course: Mr Avila is a 47 yo male with h/o schizophrenia versus bipolar disorder who was admitted to inpatient psychiatric unit for suicidality and psychosis. He was discharged and sent to [facility] for admission to evaluate a left neck mass. There was little concern for infection, but suspicion for cancer such as squamous cell carcinoma or lymphoma were high. He underwent biopsy and pathology results are still pending. His mental health status needed ongoing attention due to persistent suicidality and thus he was discharged from the hospital back to behavioral health. Upon psychiatric stabilization and discharge from [facility], he will need an outpatient follow up appointment with [facility] to review biopsy results and determine a treatment plan. This was communicated to our licensed clinical social worker at [facility] as well as inpatient behavioral health licensed clinical social worker to help arrange. Discharge meds: See [facility] Follow up: 1. CC for biopsy results of left neck mass 2. Psychiatry
== END 2018-04-14 16:41 | DRG 651 ==
LOC: EDUNIT# → EEVIPCON 14:02 → F2N 15:20 → OBSVTOIN 18:29
PROVIDERS: ADMIT Internal Medicine; ATTEND Internal Medicine
PROC: 07B23ZX Excision of Left Neck Lymphatic, Percutaneous Approach, Diagnostic (ICD-10-PCS; principal; 2018-04-13)
DX: D36.0 Benign neoplasm of lymph nodes (principal); F25.0 Schizoaffective disorder, bipolar type; B19.20 Unspecified viral hepatitis C without hepatic coma; Z59.0 Homelessness; Z23 Encounter for immunization; Z72.0 Tobacco use
CPT/HCPCS: 80305; 82435-PO; 82565-PO; 82947-PO; 84132-PO; 84295-PO; 84520-PO; 85014-PO; 88184-90; 88185-91; 92610-GN; G0008; G0009; Q9967

== ENCOUNTER 2018-04-14 16:55 | Inpatient (IN) | payer MEDICAID ==
[2018-04-14] MEDS ORDERED: MAGNESIUM HYDROXIDE 30 ML UDCUP PO PRN (17:15)
[2018-04-14] MEDS ORDERED: MAG HYDROX/AL HYDROX/SIMETH 30 ML UDCUP PO PRN (17:15)
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
[2018-04-14] MEDS: DIVALPROEX ER 500 MG TAB PO SCH (20:07)
[2018-04-14] MEDS: OLANZapine DISINTEGR 10 MG TAB PO PRN (20:07)
[2018-04-15] MEDS: NICOTINE POLACRILEX 2 MG GUM B PRN ×6 (07:04→20:42)
--- NOTE | 2018-04-15 07:50 | SOAPPROG ---
SOAP Progress Note Assessment/Plan: Assessment: 47yo CM with hx of SZA d/o, THC and meth use also with hx of suicide attempts and AH recently transferred back to from [facility] for biopsy of neck mass 04/15/18 16:00 slept 10hr cooperative, thin CM, tattoos, good eye contact, engaging but with mildy restricted affect range. appears slightly anxious, admits feeling tired, but also worried about test results, housing, and c/o medications making him feel tired. states he has had some incr depression recently, SI 6/10 but no plan/intent and feels he can maintain safely here. does worry about neck mass, no results yet. + AH of mumbling, no CAH, gone with distraction. did not appear responding to internal stimuli during interview. states he has low energy. hoping for longer term housing. encouraged to attend group therapy on unit. informed pt of option for spiritual consult no other reported med s/e. no tremor, no ataxia, no EPS PLAN: Reported difficulty swallowing large Depakote tablets, changed to VPA sprinkles 500mg tid spiritual consult continue paliperidone 6mg Objective: Vital Signs Temp Pulse Resp BP Pulse Ox 36.6 C 98 16 113/62 95 04/15/18 06:00 04/15/18 06:00 04/15/18 06:00 04/15/18 06:00 04/15/18 06:00 - Time Spent With Patient Time Spent With Patient: 20min - Pending Discharge Pending Discharge Within 24 Hours: No Pending Discharge Within 48 Hours: No ICD10 Worksheet Patient Problems: Problems Problem Status Onset Cannabis use disorder, severe, dependence Acute Homelessness Acute Neck malignant neoplasm Acute Stimulant use disorder Acute Schizoaffective disorder, bipolar type Chronic
[2018-04-15] MEDS: PALIPERIDONE 3 MG TAB.ER PO SCH (09:06)
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
--- NOTE | 2018-04-15 13:07 | PDMN ---
Medical Necessity Medical necessity: Pt meets IP criteria per [employer]PA[employer]ER & MCG B-[id number]; est los >2 mn for eval/tx of schizoaffective disorder, bipolar type; requiring further monitoring, safety, med management & crisis stabilization; per H&P & order
--- NOTE | 2018-04-15 13:13 | ASMTCMCOM ---
CM Note CM Note Notes: Pt and CC completed an updated MTP, signed and placed in chart. Pt. reports being very concerned about biopsy and wanting to get treatment as soon as possible. Pt. stated he now needs longer-term housing due to possibly needing treatment for growth in neck. Pt. denied SI, but reports "think about it". Pt. rated his SI thoughts a 6/10, and contracted for safety. Pt. reports "more depressing stuff on top of more depressing stuff". Pt. reports the MD he spoke with told him to "slow down'. Pt. denied SI, HI, and AVH. Pt. reports paranoia about "things not going right". Pt. showed CC his discharge paperwork with a referral to: Ramirez Murphy MD [facility], [address] [address] Pt. presents as alert, anxious, some eye contact, disheveled, and with a mostly pleasant demeanor. Staff report pt. sleeping 10 hours, and being medication complaint. Date Signed: 04/15/2018 01:13 PM Electronically Signed By:Mary Kate Guzman
[2018-04-15] MEDS: OLANZapine DISINTEGR 10 MG TAB PO PRN (20:42)
[2018-04-15] MEDS: DIVALPROEX ER 500 MG TAB PO SCH (22:11)
[2018-04-15] MEDS: DIVALPROEX NA 125 MG CAP.SPRINKLE PO SCH (22:15)
[2018-04-16] MEDS: ACETAMINOPHEN 325 MG TAB PO PRN (07:29)
[2018-04-16] MEDS: NICOTINE POLACRILEX 2 MG GUM B PRN ×10 (07:30→23:35)
[2018-04-16] MEDS: PALIPERIDONE 3 MG TAB.ER PO SCH (08:23)
[2018-04-16] MEDS: DIVALPROEX NA 125 MG CAP.SPRINKLE PO SCH (08:26)
--- NOTE | 2018-04-16 11:39 | SOAPPROG ---
SOAP Progress Note Assessment/Plan: Assessment: 47yo CM with hx of SZA d/o, THC and meth use also with hx of suicide attempts and AH recently transferred back to from [facility] for biopsy of neck mass 04/15/18 16:00 slept 10hr cooperative, thin CM, tattoos, good eye contact, engaging but with mildy restricted affect range. appears slightly anxious, admits feeling tired, but also worried about test results, housing, and c/o medications making him feel tired. states he has had some incr depression recently, SI 6/10 but no plan/intent and feels he can maintain safely here. does worry about neck mass, no results yet. + AH of mumbling, no CAH, gone with distraction. did not appear responding to internal stimuli during interview. states he has low energy. hoping for longer term housing. encouraged to attend group therapy on unit. informed pt of option for spiritual consult no other reported med s/e. no tremor, no ataxia, no EPS PLAN: Reported difficulty swallowing large Depakote tablets, changed to VPA sprinkles 500mg tid spiritual consult continue paliperidone 6mg 04/16/18 14:32 slept 9.5hr. still feeling tired this AM. took zyprexa 10mg prn last night, stated this was offered b/c not sure if order for VPA sprinkles would get changed before he went to bed. didn't want sprinkles and have to have food with them. accepted offer for change to liquid. denies other physical c/o except sore throat. declines cepacol prn offer, rather prefers prn tylenol. expressed motivation to work with cm and [facility] after d/c nml speech vol,rate, good ec, mood "okay", affect constricted, denied AH presently but states still with occasional AH mumbling, no current SI, denies thoughts to harm others. i/j fair. Plan: Does not want VPA sprinkles 500mg tid. Agreed to change to Depakene liquid, will order 750mg BID. will need VPA level this week. agrees to try Invega at HS instead of AM, start tomorrow. still awaiting bx results Objective: Vital Signs Temp Pulse Resp BP Pulse Ox 36.7 C 93 16 117/67 96 04/16/18 06:00 04/16/18 06:00 04/16/18 06:00 04/16/18 06:00 04/16/18 06:00 - Time Spent With Patient Time Spent With Patient: 20min - Pending Discharge Pending Discharge Within 24 Hours: No Pending Discharge Within 48 Hours: No ICD10 Worksheet Patient Problems: Problems Problem Status Onset Cannabis use disorder, severe, dependence Acute Homelessness Acute Neck malignant neoplasm Acute Stimulant use disorder Acute Schizoaffective disorder, bipolar type Chronic
--- NOTE | 2018-04-16 12:45 | ASMTCMCOM ---
CM Note CM Note Notes: Pt. reports feeling "okay". Pt. stated he woke up 2-3 times last night, but slept okay. Pt. reports eating well and not really attending groups. Pt. stated one of his medications is causing him to "feel sluggish", adding he believes it is the Depakote. Pt. requested to stop the medication that is making him feel sluggish. Pt. denied SI, HI, and AVH. Pt. reports similar paranoia as yesterday, that things won't go right. CC discussed quitting smoking and gave pt. a [facility] referral card. Pt. stated he only wants to quit smoking if he does in fact have cancer. Pt. stated he will continue smoking at this time. Pt. presents as alert, less anxious than yesterday, with good eye contact and a pleasant demeanor. Staff report pt. sleeping 9.5 hours, being medication compliant and a 0/10 for SI. Date Signed: 04/16/2018 12:44 PM Electronically Signed By:Mary Kate Guzman
--- NOTE | 2018-04-16 14:44 | SOAPPROG ---
SOAP Progress Note Assessment/Plan: Assessment: Objective: Vital Signs Temp Pulse Resp BP Pulse Ox 36.7 C 93 16 117/67 96 04/16/18 06:00 04/16/18 06:00 04/16/18 06:00 04/16/18 06:00 04/16/18 06:00 - Time Spent With Patient Time Spent With Patient: 15min - Pending Discharge Pending Discharge Within 24 Hours: No Pending Discharge Within 48 Hours: No ICD10 Worksheet Patient Problems: Problems Problem Status Onset Cannabis use disorder, severe, dependence Acute Homelessness Acute Neck malignant neoplasm Acute Stimulant use disorder Acute Schizoaffective disorder, bipolar type Chronic
[2018-04-16] MEDS ORDERED: OLANZapine DISINTEGR 10 MG TAB PO PRN (14:58)
[2018-04-16] MEDS ORDERED: VALPROIC ACID 250 MG/5 ML UDCUP PO SCH (21:00)
[2018-04-17] MEDS: NICOTINE POLACRILEX 2 MG GUM B PRN ×7 (06:30→20:59)
--- NOTE | 2018-04-17 07:54 | SOAPPROG ---
SOAP Progress Note Assessment/Plan: Assessment: Schizoaffective disorder, bipolar type, Stimulant Use Disorder, Severe, Cannabis Use Disorder, Severe. Homelessness. Improvement noted. (see subjective/objective note). Patient could benefit from continued inpatient hospitalization for crisis stabilization (recent AH, history recent suicide attempts), observation of safety (recent report of SI and history of recent serious suicide attempts), and medication evaluation (patient reported AH at time of admission; could benefit from continued monitoring for efficacy and toleration of medications). Plan: (1) Psychotropic medications: After reviewing options, risks, and benefits patient agrees to continue current medications. No medication changes at this time as more time is needed to determine ongoing tolerability and efficacy. Plan is to continue to observe patient for response and side effects from medications, and ongoing monitoring and evaluation. (2) Review with patient informed consent and recommendations for psychotropic medication treatment listed below (3) Labs: no additional labs at this time (4) Therapy: continue milieu and group therapy (5) Further investigation including gathering information from patients relatives and review of past case records to inform treatment plan. (6) Safety/Wellness plan and follow-up outpatient appointments to be established prior to discharge. Next steps are for patient to meet with critical care nurse specialist to plan a safe discharge plan and establish outpatient services for ongoing treatment. (7) Confer with inpatient treatment team regarding treatment plan. (8) Legal status: voluntary (9) Consider discharge on Tuesday if patient is in stable condition, safe, and has a safe discharge plan. (10) Substance abuse intervention: cannabis and methamphetamine PSYCHOTROPIC MEDICATION TREATMENT INFORMED CONSENT and RECOMMENDATIONS: Review nature of condition, diagnosis, and prognosis. Review nature and purpose of psychotropic medication treatment. Review type of psychotropic medications being ordered. Review risk and benefits of psychotropic medication treatment. Review probable length of time patient will need to take medications. Review risk and benefits of not undergoing psychotropic medication treatment. Review alternative treatments to psychotropic medications. Review psychotropic medications contraindications, drug-drug interactions, side effects, and importance of reporting any side effects to a psychiatric provider or nurse during inpatient hospitalization, and upon discharge to patients psychiatric outpatient provider, primary care provider, or other health rehab care assistant. Review importance of asking a nurse, psychiatric provider, or primary care provider any questions or problems concerning the psychotropic medications. Verify patient understands the information that has been provided, and understands, accepts, and agrees to psychotropic medications. Review patients safety plan and importance of patient to report to staff while hospitalized if patient is ever a danger to self/others, or unable to care for self, and upon discharge, the importance for patient to contact [facility] or [facility], or go to the nearest emergency room, if patient is ever a danger to self/others, or unable to care for self. Recommend that upon discharge patient establish medication management treatment with a psychiatric provider, establishes routine therapy appointments, and follow-up with primary care provider. Verify patient understands and agrees to these recommendations. 04/17/18 07:57 Subjective: Following up with patient for evaluation of ca, psychosis, and safety. Patient reports, "No longer hearing voices, feel fine. Did my results from biopsy come back yet? I would really appreciate a place to stay. Can you set me up with a place to stay after I discharge?" Patient expresses the following psychiatric symptoms none. Patient reports taking medications as prescribed, and describes response to medications as good. Patient does not report undesirable side effects from the medications, and agrees to continue current medications. Patient reports appetite as good, and reports eating all meals. Patient describes getting 8 hours of sleep. Objective: Vital Signs Temp Pulse Resp BP Pulse Ox 36.4 C 138 H 20 95/57 L 95 04/17/18 06:00 04/17/18 06:00 04/17/18 06:00 04/17/18 06:00 04/17/18 06:00 NURSING REPORT: Consulted with nursing for update on patients progress in treatment. Nurses report patient is engaged in treatment, is attending groups, slept 8 hours, expresses the following psychiatric symptoms: none, exhibits the following psychiatric symptoms: none, is eating all meals, is agreeable to medications and taking as prescribed with no report of side effects, with no s/ s of EPS/akathisia, and denies SI/HI, denies A/V hallucinations, and denies delusions. AGRICULTURAL EQUIPMENT OPERATOR UPDATE: establishing discharge plan for tomorrow MSE: The patient is a well-nourished male looking stated chronological age. Attire is appropriate and dress is casual and is neat. Grooming status is appropriate and neat. Ambulation is independent. Gait is normal and coordinated. Posture is normal and relaxed. Eye contact is appropriate, and adequate. Motor activity is appropriate with purposeful, organized, coordinated movements; with no involuntary movements. Attitude is cooperative and friendly. Patient appears attentive and relates well to this interviewer. Language production is spontaneous. R/R/V normal. Articulation is clear. Patient reports mood as okay with congruent affect. Patients thought process is linear and logical, with no loose associations, tangential thought, thought blocking, concrete thinking, or any other signs of formal thought disorder. Associations are connected. Patient does not report suicidal/homicidal thoughts , ideas, or plans. Patient denies auditory, visual hallucinations. Patient denies delusions. Patient does not appear to be attending to internal stimuli. Patients attention and concentration are adequate. Patient is oriented to person, place, time, and situation. Patients insight is fair. Patients judgment is fair. No evidence of gross cognitive dysfunction at any point during the interview. No evidence of apparent dysfunction in recent or remote memory. SUBSTANCE ABUSE BRIEF INTERVENTION: Brief intervention regarding the risks of methamphetamine and cannabis abuse is provided to patient with goal to reduce the risk of harm that could result from the continued use of methamphetamine and cannabis, with the general aim to investigate the problem, raise awareness of problem, develop a solution with the patient, recommend a specific change or activity, and motivate the patient toward change. Assess substance abuse behavior and give supportive advice about harm reduction, recommend a reduction in hazardous/at-risk consumption patterns, and facilitate referrals for additional specialized treatment with critical care nurse specialist. Intermediate goal is for the patient to quit use and attend NA meetings and OP substance abuse treatment. Intervention focus on intermediate goals to allow for more immediate success in the treatment process to keep the patient motivated. Review following with patient: Cannabis use risks: Short-term use: impaired short-term memory, impaired motor coordination, altered judgement, in high doses paranoia and psychosis. Long-term use addiction, diminished life satisfaction and achievement, symptoms of chronic bronchitis, and increased risk of chronic psychosis disorders if predisposition to such disorders. In withdrawal anger, aggression irritability, anxiety and nervousness, decreased appetite or weight loss, restlessness, and sleep difficulties with strange dreams. Methamphetamine use risks: Short-term: insomnia, irritability, aggressive behavior, hallucinations, delusions, intellectual deficits, anxiety, depression, convulsions, damage to blood vessels in the brain causing strokes, high fevers, collapse of the circulatory system. Long-term: damage to nerve pathways, maybe irreversibly; overstimulation to dopamine impairing dopamine transport and reducing efficiency of dopamine receptors, the reward system becomes worn out, leading to inability to experience pleasure for years. - Time Spent With Patient Time Spent With Patient: 15 minutes, met with patient individually. - Pending Discharge Pending Discharge Within 24 Hours: Yes Pending Discharge Within 48 Hours: No Pending Discharge Date: 04/18/18 Pending Discharge Time: 11:00 ICD10 Worksheet Patient Problems: Problems Problem Status Onset Acute psychosis Acute Cannabis use disorder, severe, dependence Acute Homelessness Acute Neck malignant neoplasm Acute Stimulant use disorder Acute Schizoaffective disorder, bipolar type Chronic
[2018-04-17] MEDS: DIVALPROEX NA 250 MG TAB PO SCH ×2 (09:04→20:52)
--- NOTE | 2018-04-17 11:29 | ASMTBHDC ---
Notes Note: Notes: CC confirmed client's discharge follow up plan. CC will try to get client a Respite bed through [facility]; however, if none available client will have to stay at the [facility]. [facility] [address] [facility] Appt: TuesdayApril 19 (04/19/18) at 9am, with Gigi on the second floor. From previous discharge paperwork: Ramirez Murphy MD [facility], [address] [place] [id number] Next Appt: TuesdayApril 25 (04/25/18) at 11am with Dr. Murphy. Additional Resources: [facility] [address] [place] [address] [facility] Location: [address] [place] [id number] Coordinated Entry must be done prior to discharge [facility] [address] [place] [address] Date Signed: 04/17/2018 11:28 AM Electronically Signed By:Isiah Rocha
--- NOTE | 2018-04-17 14:02 | ASMTBHDC ---
Notes Note: Notes: Corrected discharge follow up: Follow up with: [facility] [address], [facility] Next Appt: TuesdayApril 19 (04/19/18) at 9am, with Gigi on the second floor. From previous discharge paperwork: Dr. Jan SALVADOR [facility], [address] [place] [address] Next Appt: TuesdayApril 26 (04/26/18) at 11:[address] Montoya. Additional Resources: [facility] [address] [place], [place] [id number] [facility] Location: [address] [place] [id number] Coordinated Entry must be done prior to discharge [facility] [address] [place] [address] Date Signed: 04/17/2018 02:01 PM Electronically Signed By:Isiah Rocha
[2018-04-17] MEDS ORDERED: PALIPERIDONE 3 MG TAB.ER PO SCH (21:00)
[2018-04-18 06:43] VITALS: BP 162/71
--- NOTE | 2018-04-18 07:28 | BDS ---
REASON FOR ADMISSION: The patient was admitted involuntarily and was admitted for safety crisis stabilization and medication management. The patient was admitted for psychosis, notably auditory hallucinations. ADMITTING DIAGNOSES: 1. Schizoaffective disorder, bipolar type. 2. Stimulant use disorder. 3. Severe cannabis use disorder, severe. 4. Homelessness 5. Rule out malingering. ADMISSION PHYSICAL EXAM: The patient was discharged from [facility] on 04/14/2018. The patient was discharged and sent to [facility] for a biopsy for a neck mass. The patient was discharged awaiting pending pathology results. The patient was medically cleared for readmission for inpatient psychiatric hospitalization and treatment. For further details, please refer to the discharge summary dated 04/14/2018. The patient was initially seen for a history and physical consultation on 04/11/2018, from prior inpatient psychiatric hospitalization prior to being discharge for further evaluation of neck mass. The patient was seen on 04/11/2018, by Dr. Guadarrama for an Internal Medicine consultation for medical clearance for inpatient behavioral health stay. Dr. Guadarrama reported he saw no medical contraindications to the patient's continued stay in the inpatient behavioral health unit or to any psychiatric medications or procedures. ADMISSION LABS: CBC from 04/10/2018, within normal limits. Chemistry from , within normal limits. Hemoglobin A1c from 04/10/2018, was within normal limits at 5.7. Liver function tests from 04/10/2018, within normal limits. Fasting lipid panel from 04/10/2018, within normal limits, except LDL cholesterol calculated was elevated at 104. TSH from 04/10/2018, was 1.510 and was within normal limits. Toxicology screen from 04/10/2018 and from 04/12/2018 , negative for all substances of abuse. Negative for ethyl alcohol. Valproic acid level from 04/17/2018, was 52.9 and that is at the current dose of Depakote 750 mg p.o. b.i.d. MAJOR PROCEDURES OR TESTS: There were no major procedures or tests performed while patient was hospitalized at [address] [place] [address]. The patient was discharged on 04/12/2018, and was sent to the [facility] for procedures and tests related to a neck mass. For further details, please refer to those notes and consultations. The patient is currently awaiting biopsy results and patient is to follow up with [facility] for those results and further treatment recommendations. HOSPITAL COURSE: The most prominent symptoms and behaviors while the patient was here were complaints of auditory hallucinations. Target symptoms during hospitalization: Psychosis. Treatment modalities utilized were milieu and group therapy. Depakote 750 mg p.o. b.i.d. was tolerated with no report of side effects and with good response. Invega ER 6 mg p.o. daily was tolerated with no report of side effects and with good response. The patient has improved considerably with no signs of psychiatric symptoms and no psychiatric symptoms expressed at time of discharge. The patient reports he has improved since admission, states to be in stable condition, feels safe to discharge and he contracts for safety. The patient's response to treatment was good. There were no adverse or unexpected results of treatment. The patient was safe throughout his stay, active in treatment, engaged in groups, and was appropriate with staff and other patients. The patient met with the treatment team prior to discharge to assess readiness to discharge and review discharge plan. The treatment team consensus is the patient is in stable condition, has a safe discharge plan and is ready to discharge today. CONDITION AT DISCHARGE: Patient is in stable condition and is no longer a danger to self or others, and is not gravely disabled due to mental illness. Patient is no longer in need of inpatient level of care, and can be safely and effectively treated within the community. The patients level of risk at time of discharge is low. MSE: The patient is casually dressed and with good hygiene , and looks stated age. Patient is sitting, posture is upright, and position is relaxed. Patient appears awake, alert, and responds appropriately and reasonably during interview. Patient is engaged, relates well to interviewer, and emotional facial expression is appropriate to situation and changes appropriately with topic. Patient is cooperative, makes comfortable eye contact , and movements are voluntary, deliberate, coordinated, and smooth and even with no inappropriate movements. Patient makes laryngeal sounds effortlessly and shares conversation appropriately; pace of conversation is appropriate, and stream of talking is fluent; articulation is clear and understandable; word choice is effortless and appropriate for education level; completes sentences, occasionally pausing to think; rate and volume are appropriate for interview and setting. Patient reports mood as euthymic. Patients affect is stable with full variable range, congruent with mood, and appropriate to speech and circumstances. Patient has linear and logical thinking, with no loose associations, tangential thought, thought blocking, concrete thinking, or any other signs of formal thought disorder. Patient denies suicidal and homicidal ideation, and denies hallucinations and delusions. Patient appears to be a reliable historian with sound judgement and good insight into current condition. Patient has no apparent dysfunction in recent or remote memory noted , and no evidence of gross cognitive dysfunction noted at any point during the interview. DISCHARGE DIAGNOSES: 1. Schizoaffective disorder, bipolar type. 2. Stimulant use disorder. 3. Severe cannabis use disorder, severe. 4. Homelessness 5. Rule out malingering. CURRENT MEDICATIONS: After reviewing options, risks and benefits with the patient, the patient agrees to continue Depakote 750 mg p.o. b.i.d. and Invega ER 6 mg p.o. daily. The patient requests prescriptions for these medications at the time of discharge. Prescriptions are written for 30 days and provided to the patient. The prescriptions are reviewed with the patient at time of discharge to ensure accuracy and patient understanding. DISPOSITION: The patient left the hospital independently and voluntarily today and plans to stay at the homeless [facility] in [place]. FOLLOWUP: campus recruiting coordinator reports the appropriate outpatient follow-up services have been established and outpatient appointments have been scheduled. The patient received written instructions with times and dates of outpatient follow-up appointments. The following follow-up recommendations were provided to the patient at discharge: Continue psychotropic medications as prescribed and attend appointments as scheduled. Report any side effects to a psychiatric outpatient provider, a primary care provider, or other health care specialist. Address any questions or problems concerning the psychotropic medications with a psychiatric outpatient provider, a primary care provider, or other health care specialist. Contact [facility] or [facility], or go to the nearest emergency room, if you are ever a danger to yourself/others, or unable to care for yourself. As soon as possible, establish a routine medication management treatment with a psychiatric provider, establish routine therapy appointments, and follow-up with a primary care provider. SUBSTANCE ABUSE BRIEF INTERVENTION: Brief intervention regarding the risks of methamphetamine and cannabis abuse is provided to patient with goal to reduce the risk of harm that could result from the continued use of methamphetamine and cannabis, with the general aim to investigate the problem, raise awareness of problem, develop a solution with the patient, recommend a specific change or activity, and motivate the patient toward change. Assess substance abuse behavior and give supportive advice about harm reduction, recommend a reduction in hazardous/at-risk consumption patterns, and facilitate referrals for additional specialized treatment with lpn care manager. Intermediate goal is for the patient to quit to quit and engage in outpatient substance abuse treatment. Intervention focus on intermediate goals to allow for more immediate success in the treatment process to keep the patient motivated. Review following with patient: Cannabis use risks: Short-term use: impaired short-term memory, impaired motor coordination, altered judgement, in high doses paranoia and psychosis. Long-term use addiction, diminished life satisfaction and achievement, symptoms of chronic bronchitis, and increased risk of chronic psychosis disorders if predisposition to such disorders. In withdrawal anger, aggression irritability, anxiety and nervousness, decreased appetite or weight loss, restlessness, and sleep difficulties with strange dreams. Methamphetamine use risks: Short-term: insomnia, irritability, aggressive behavior, hallucinations, delusions, intellectual deficits, anxiety, depression, convulsions, damage to blood vessels in the brain causing strokes, high fevers, collapse of the circulatory system. Long-term: damage to nerve pathways, maybe irreversibly; overstimulation to dopamine impairing dopamine transport and reducing efficiency of dopamine receptors, the reward system becomes worn out, leading to inability to experience pleasure for years. OUTPATIENT SUBSTANCE ABUSE TREATMENT: Patient referred to outpatient provider and treatment for continued treatment related to substance abuse. LEGAL COURSE: The patient was admitted voluntarily and remained voluntarily throughout his stay. The patient discharged today independently and voluntarily. ATTITUDE AT TIME OF DISCHARGE: The patients attitude was positive at time of discharge, and patient reports looking forward to discharging today. The patient reports he feels safe to discharge, is no longer a danger to himself or others, is in stable condition, and contracts for safety. Patient states he will continue medications as prescribed, and establish medication management treatment with an outpatient provider after discharge. Patient reports he understands the information that has been provided to him, and he understands, accepts, and agrees to psychotropic medications. Patient describes internal protective factors as the coping skills he has learned while hospitalized here, and he plans to continue to practice these coping skills after discharge. LABS AND STUDIES: There were no pending labs or studies from this inpatient psychiatric hospitalization. The patient is awaiting biopsy results from biopsy the patient received at [facility] and patient instructed to follow up with [facility] after discharge for results and to review treatment recommendations. ADVANCED DIRECTIVES: There were no advance directives on file, and the patient was full code during this hospitalization. The following psychotropic medication treatment informed consent and recommendations were provided to the patient at time of discharge. Patient reports he understands, accepts, and agrees to the information that has been provided. PSYCHOTROPIC MEDICATION TREATMENT INFORMED CONSENT and RECOMMENDATIONS: Review nature of condition, diagnosis, and prognosis. Review nature and purpose of psychotropic medication treatment. Review type of psychotropic medications being prescribed. Review risk and benefits of psychotropic medication treatment. Review probable length of time will need to take medications. Review risk and benefits of not undergoing psychotropic medication treatment. Review alternative treatments to psychotropic medications. Review psychotropic medications contraindications, side effects, and importance of reporting any side effects to a psychiatric provider, primary care provider, or other health care specialist. Review importance of her asking a psychiatric provider or primary care provider any questions or problems concerning the psychotropic medications. Review safety plan and the importance to contact [facility] or [facility] , or go to the nearest emergency room, if ever a danger to yourself/others, or unable to care for yourself. Recommend upon discharge to establish routine medication management treatment with a psychiatric provider, establish routine therapy appointments, and follow-up with a primary care provider. Verify patient understands, accepts, and agrees to the information that has been provided. /[id number]/MODL [id number]
[2018-04-18] MEDS: NICOTINE POLACRILEX 2 MG GUM B PRN (07:53)
[2018-04-18] MEDS: DIVALPROEX NA 250 MG TAB PO SCH (07:53)
[2018-04-18] MEDS: ACETAMINOPHEN 325 MG TAB PO PRN (08:48)
== END 2018-04-18 10:15 | disposition home or self-care (01) | DRG 885 ==
LOC: BBEH 16:55
PROVIDERS: ADMIT Registered Nurse; ATTEND Registered Nurse
DX: F25.0 Schizoaffective disorder, bipolar type (principal); T43.506A Underdosing of unspecified antipsychotics and neuroleptics, initial encounter; F15.90 Other stimulant use, unspecified, uncomplicated; F12.90 Cannabis use, unspecified, uncomplicated; Z59.0 Homelessness

== ENCOUNTER 2018-04-26 13:47 | Inpatient (IN) | payer MEDICAID ==
--- NOTE | 2018-04-26 14:12 | EDPHY ---
H & P Stated Complaint: Feeling "suicidal". Time Seen by Provider: 04/26/18 13:59 HPI/ROS: CHIEF COMPLAINT: "I just want to kill myself" HISTORY OF PRESENT ILLNESS: 47-year-old homeless male history of schizoaffective disorder, history of methamphetamine use 3 days ago, took the bus to the ER complaining of worsening depression with plan to lacerated wrists. Denies attempt. Denies hallucination. Denies alcohol use. Denies self-injurious behavior. Denies complaints of physical pain REVIEW OF SYSTEMS: 10 systems reviewed and negative with the exception of the elements mentioned in the history of present illness PAST MEDICAL & SURGICAL HISTORY: Schizoaffective disorder. SOCIAL HISTORY: Last methamphetamine use 3 days ago FAMILY HISTORY: No pertinent family history PHYSICAL EXAM (Prior to examination, patient consented to physical exam, hands were washed and my usual and customary physical exam procedures followed) 1) GENERAL: poorly kept, dirty, untidy, depressed flat affect. 2) HEAD: Normocephalic, atraumatic 3) HEENT: Pupils equal, round, reactive to light bilaterally. Sclera anicteric. 4) NECK: Full range of motion, no meningeal signs. 5) LUNGS: Clear auscultation bilaterally, no wheezes, no rhonchi, no retractions. 6) HEART: Regular rate and rhythm, no murmur, no heave, no gallop. 7) ABDOMEN: No guarding, no rebound, no focal tenderness, negative McBurney's, negative Orozco's, negative Rovsing's, negative peritoneal sign, 8) MUSCULOSKELETAL: Moving all extremities, no focal areas of tenderness, no obvious trauma. No peripheral edema or discoloration. 9) BACK: No obvious trauma, no visual or palpable abnormality. 10) SKIN: No rash, no petechiae. 11) Psychiatric: Patient is oriented X 3, there is no agitation. Depressed, flat affect DIFFERENTIAL DIAGNOSIS: In no particular order including but not limited to depression, suicidal ideation, homicidal ideation - Personal History Current Tetanus Diphtheria and Acellular Pertussis (TDAP): No - Medical/Surgical History Hx Asthma: No Hx Chronic Respiratory Disease: No Hx Diabetes: No Hx Cardiac Disease: No Hx Renal Disease: No Hx Cirrhosis: No Hx Alcoholism: No Hx HIV/AIDS: No Hx Splenectomy or Spleen Trauma: No Other PMH: hep c, hypertension, iv drug addiction, gerd, depression. - Social History Smoking Status: Heavy smoker Constitutional: Initial Vital Signs Heart Rate 103 H 04/26/18 13:51 Respiratory Rate 18 04/26/18 13:51 Blood Pressure 120/68 04/26/18 13:51 O2 Sat (%) 91 L 04/26/18 13:51 O2 Delivery Mode Room Air Allergies/Adverse Reactions: No Known Allergies Allergy (Verified 04/26/18 14:52) Home Medications: Medication Instructions Recorded Acetaminophen [Tylenol 325mg (*)] 650 mg PO Q4HRS PRN tab 04/12/18 Nicotine Polacrilex [Nicorette gum 2 mg B Q1HR PRN gum 04/12/18 (*)] Divalproex [Depakote] 750 mg PO BID 30 Days #180 tab 04/18/18 Paliperidone [Invega] 6 mg PO DAILY 30 Days #30 tab.er.24 04/18/18 Medical Decision Making ED Course/Re-evaluation: 2:10 p.m.: I reviewed the patient's old medical records including recent hospitalization of approximately 2 weeks ago. Patient last used methamphetamine 3 days ago via inhalation. Patient presents to the ER complaining of suicidal ideation with plan to lacerate wrist. Consultation with Dr. Raphael Worthington in the ER the patient was placed on an M1 hold at 2:08 p.m.. 2:50 p.m.: Informed by mental health vendor specialist Grant Noonan that patient has been accepted for transfer, [address] physician [address] Hodges. [facility] paperwork completed. - Data Points Laboratory Results: Laboratory Results 04/26/18 14:30 04/26/18 14:30 04/26/18 04/26/18 04/26/18 14:30 14:30 14:30 WBC 8.05 10^3/uL 10^3/uL (3.80-9.50) RBC 5.33 10^6/uL 10^6/uL (4.40-6.38) Hgb 16.0 g/dL g/dL (13.7-17.5) Hct 46.9 % % (40.0-51.0) MCV 88.0 fL fL (81.5-99.8) MCH 30.0 pg pg (27.9-34.1) MCHC 34.1 g/dL g/dL (32.4-36.7) RDW 13.2 % % (11.5-15.2) Plt Count 342 10^3/uL 10^3/uL (150-400) MPV 9.0 fL fL (8.7-11.7) Neut % (Auto) 69.7 % % (39.3-74.2) Lymph % (Auto) 20.2 % % (15.0-45.0) [place] % (Auto) 9.7 % % (4.5-13.0) Eos % (Auto) 0.0 % L % (0.6-7.6) Baso % (Auto) 0.2 % L % (0.3-1.7) Nucleat RBC Rel Count 0.0 % % (0.0-0.2) Absolute Neuts (auto) 5.60 10^3/uL 10^3/uL (1.70-6.50) Absolute Lymphs (auto) 1.63 10^3/uL 10^3/uL (1.00-3.00) Absolute Monos (auto) 0.78 10^3/uL 10^3/uL (0.30-0.80) Absolute Eos (auto) 0.00 10^3/uL L 10^3/uL (0.03-0.40) Absolute Basos (auto) 0.02 10^3/uL 10^3/uL (0.02-0.10) Absolute Nucleated RBC 0.00 10^3/uL 10^3/uL (0-0.01) Immature Gran % 0.2 % % (0.0-1.1) Immature Gran # 0.02 10^3/uL 10^3/uL (0.00-0.10) Sodium 140 mEq/L mEq/L (135-145) Potassium 4.4 mEq/L mEq/L (3.3-5.0) Chloride 102 mEq/L mEq/L (97-110) Carbon Dioxide 27 mEq/l mEq/l (22-31) Anion Gap 11 mEq/L mEq/L (8-16) BUN 25 mg/dL H mg/dL (7-23) Creatinine 0.8 mg/dL mg/dL (0.7-1.3) Estimated GFR > 60 Glucose 104 mg/dL H mg/dL (70-100) Calcium 10.0 mg/dL mg/dL (8.5-10.4) Salicylates < 1.0 mg/dL L mg/dL (2.0-20.0) Urine Opiates Screen NEGATIVE (NEGATIVE) Acetaminophen < 10 mcg/mL L mcg/mL (10-30) Urine Barbiturates NEGATIVE (NEGATIVE) Ur Phencyclidine Scrn NEGATIVE (NEGATIVE) Ur Amphetamine Screen NEGATIVE (NEGATIVE) U Benzodiazepines Scrn NEGATIVE (NEGATIVE) Urine Cocaine Screen NEGATIVE (NEGATIVE) U Marijuana (THC) Screen NEGATIVE (NEGATIVE) Ethyl Alcohol < 10 mg/dL mg/dL (0-10) Departure - Departure Disposition: [facility] IP Clinical Impression: Schizoaffective disorder, bipolar type, Suicidal ideation Condition: Fair Referrals: NONE *PRIMARY CARE P,. [Primary Care Provider] - As per Instructions
[2018-04-26 14:53] LABS: PLATELET COUNT 342 10^3/uL (150-400)
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
--- NOTE | 2018-04-26 15:11 | ASMTTCLDSP ---
TLC Discharge Disposition Disposition: Answers: Admit Disposition Notes: Notes: Admit 3N. Discharge Concerns/Recommendations: Notes: In consultation with [facility] ED physician, Raphael Worthington MD and on-call psychiatric nurse practitioner, Jeffrey Hodges APN, both concurred that pt appears to meet 27-65 criteria requiring psychiatric hospitalization as pt appears to be at risk of harm to self due to a mental illness condition. Was patient given the Answers: Yes Inpatient Behavioral Health Prohibited Belongings List while in the ED? For inpatient Jeffrey Hodges APN admission, the following psychiatrist agreed to accept patient for admission to Behavioral Health ([facility]): Type of Hold: Answers: M1/72-hour Hold Hold initiated by: Answers: ED Physician Date Signed: 04/26/2018 03:10 PM Electronically Signed By:Grant Calzada
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
[2018-04-26] MEDS ORDERED: MAGNESIUM HYDROXIDE 30 ML UDCUP PO PRN (20:03)
[2018-04-26] MEDS ORDERED: MAG HYDROX/AL HYDROX/SIMETH 30 ML UDCUP PO PRN (20:03)
[2018-04-26] MEDS ORDERED: ACETAMINOPHEN 325 MG TAB PO PRN (20:03)
[2018-04-26] MEDS: DIVALPROEX ER 500 MG TAB PO SCH (20:40)
[2018-04-26] MEDS: risperiDONE 1 MG TAB PO SCH (20:40)
[2018-04-27] MEDS: risperiDONE 1 MG TAB PO SCH ×2 (08:17→20:52)
--- NOTE | 2018-04-27 08:47 | ASMTBHMTP ---
Master Treatment Plan Master Treatment Plan Answers: Depressed Mood with for: Suicidal Ideation Date: 04/27/2018 Diagnosis on Admission: Schizoaffective Disorder, Bipolar Type 295.70 Expected length of stay: 3-5 Days Reason for admission: Notes: Per TLC evaluation - Pt. is a 47 year old single, homeless, disabled, male with history of schizoaffective disorder-bipolar type, methamphetamine use disorder, and cannabis use disorder, moderate, initially self-presented to [facility] ED on a voluntary basis after taking a bus to the ED. He was placed on M1 hold by ED provider which noted: "Juan Alberto took bus to ER, complaining of suicidal ideation with plan to lacerate wrists. History of schizoaffective disorder." Pt appeared older than his stated age, appeared disheveled, unclean, thin, however, was cooperative and polite throughout ED MH interview process. He also appeared to be responding to internal stimuli, with thought blocking and delayed responses. Patient's stated presenting problems: Notes: Suicidal thoughts and hearing voices Patient's goals for treatment: Notes: Work on things Patient's strengths: Notes: Not sure Identify supports outside of hospital: Notes: Don't have anyone Discharge criteria: Notes: Suicidal ideation will resolve and patient will have a plan to safely manage recurrent suicidal ideation. Initial disposition plan/considerations: Notes: Homeless and [facility] [place] Master Treatment Plan Required Signatures Psychiatrist signature: Answers: Psychiatrist: RN on-shift signature: Answers: RN: Patient signature: Answers: Patient: Date Signed: 04/27/2018 08:46 AM Electronically Signed By:Mary Kate Guzman
--- NOTE | 2018-04-27 12:48 | ASMTCMCOM ---
CM Note CM Note Notes: Pt. and CC completed MTP, signed and placed in pt. chart. Pt. reports "not feeling very good" adding he has feelings of depression. Pt. stated he was currently having AH of voices "just talking in my head" adding there are "a lot of them [voices]". Pt. denied SI, HI, VH and paranoia. Pt. stated he can go to the homeless senior care upon discharge. Pt. stated he did get a respite bed through [facility], but met someone there on the first day, used Meth and felt too guilty to return to the respite bed. Pt. reports feeling hopeless about his current situation. Pt. presents as alert, anxious, avoiding eye contact, delayed responses, and disheveled. Staff report pt. sleeping 10 hours and being medication complaint. Date Signed: 04/27/2018 12:47 PM Electronically Signed By:Mary Kate Guzman
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
[2018-04-27] MEDS: DIVALPROEX ER 500 MG TAB PO SCH ×2 (20:52→21:11)
[2018-04-28] MEDS: QUEtiapine FUMARATE 100 MG TAB PO SCH ×2 (08:48→21:21)
--- NOTE | 2018-04-28 08:58 | SOAPPROG ---
SOAP Progress Note Assessment/Plan: Assessment: Schizoaffective disorder, currently depressed and psychotic. Stimulant use disorder, severe. Stimulant withdrawal. No improvement noted. (see subjective/ objective note). Patient is not safe to discharge at this time as patient continues to exhibit signs of acute psychosis, and express depression, psychotic symptoms, and suicidal ideation with plan to cut himself with boxcutter. Patient requires continued inpatient care because of current psychosis and suicidal ideation, and requires inpatient level of care to stabilize in order to no longer be a danger to himself and gravely disabled due to mental illness. Patient could benefit from continued inpatient hospitalization for crisis stabilization, safety, and medication evaluation. Plan: (1) Psychotropic medications: After reviewing options, risks, and benefits patient agrees to continue current medications with following changes: Taper Risperidone to 1 mg po QD, and begin trial of Seroquel 100 mg po BID. No other medication changes at this time as more time is needed to determine ongoing tolerability and efficacy. Plan is to continue to observe patient for response and side effects from medications, and ongoing monitoring and evaluation. (2) Review with patient informed consent and recommendations for psychotropic medication treatment listed below (3) Labs: no additional labs at this time (4) Therapy: continue milieu and group therapy (5) Further investigation including gathering information from patients relatives and review of past case records to inform treatment plan. (6) Safety/Wellness plan and follow-up outpatient appointments to be established prior to discharge. Next steps are for patient to meet with rn care transition to plan a safe discharge plan and establish outpatient services for ongoing treatment. (7) Confer with inpatient treatment team regarding treatment plan. (8) Legal status: M1 hold to sign-in voluntarily (9) Consider discharge on Tuesday if patient is in stable condition, safe, and has a safe discharge plan. (10) Substance abuse interventions: methamphetamine PSYCHOTROPIC MEDICATION TREATMENT INFORMED CONSENT and RECOMMENDATIONS: Review nature of condition, diagnosis, and prognosis. Review nature and purpose of psychotropic medication treatment. Review type of psychotropic medications being ordered. Review risk and benefits of psychotropic medication treatment. Review probable length of time patient will need to take medications. Review risk and benefits of not undergoing psychotropic medication treatment. Review alternative treatments to psychotropic medications. Review psychotropic medications contraindications, drug-drug interactions, side effects, and importance of reporting any side effects to a psychiatric provider or nurse during inpatient hospitalization, and upon discharge to patients psychiatric outpatient provider, primary care provider, or other health career technical counselor. Review importance of asking a nurse, psychiatric provider, or primary care provider any questions or problems concerning the psychotropic medications. Verify patient understands the information that has been provided, and understands, accepts, and agrees to psychotropic medications. Review patients safety plan and importance of patient to report to staff while hospitalized if patient is ever a danger to self/others, or unable to care for self, and upon discharge, the importance for patient to contact [facility] or [facility], or go to the nearest emergency room, if patient is ever a danger to self/others, or unable to care for self. Recommend that upon discharge patient establish medication management treatment with a psychiatric provider, establishes routine therapy appointments, and follow-up with primary care provider. Verify patient understands and agrees to these recommendations. 04/28/18 09:01 Subjective: Following up with patient for evaluation of psychosis, ca, and safety. Patient screams, "I am so tired of feeling like this, I want to just go get a boxcutter and slash myself and get this over with. These medications are not working, I continue to hear things, I cannot sleep, cant function like this. Seroquel has worked better than Risperdal for me in the past." Patient expresses the following psychiatric symptoms severe depression, suicidal ideation with plan to cut with boxcutter, and auditory hallucinations. Patient reports taking medications as prescribed, and describes response to medications as poor. Patient does not report undesirable side effects from the medications , and agrees to taper and discontinue Risperdal and begin trial of Seroquel 100 mg po BID. Patient reports he has taken Seroquel 600 mg po QHS in the past. Patient reports appetite as good, and reports eating all meals. Patient describes getting 4 hours of sleep, and reports he had difficulty sleeping due to auditory hallucinations. Objective: Vital Signs Temp Pulse Resp BP Pulse Ox 36.7 C 85 16 97/59 L 93 04/28/18 06:00 04/28/18 06:00 04/28/18 06:00 04/28/18 06:00 04/28/18 06:00 NURSING REPORT: Consulted with nursing for update on patients progress in treatment. Nurses report patient is not engaged in treatment, is not attending groups, withdrawn to his room, slept 8 hours, expresses the following psychiatric symptoms: severe depression, auditory hallucinations; exhibits the following psychiatric symptoms: withdrawn, irritable, agitated; is eating all meals, is agreeable to medications and taking as prescribed with no report of side effects, with no s/s of EPS/akathisia, and denies HI, denies A/V hallucinations, and denies delusions. Patient reports SI with plan to cut himself with a boxcutter. LETTER OF CREDIT CLERK UPDATE: currently establishing setting up outpatient services for medication management, therapy, and substance abuse treatment. MSE: The patient is a well-nourished male looking stated chronological age. Attire is appropriate and dress is casual and is neat. Grooming status is appropriate and neat. Ambulation is independent. Gait is normal and coordinated. Posture is abnormal and tense. Eye contact is inappropriate, and staring. Motor activity is appropriate with purposeful, organized, coordinated movements; with no involuntary movements. Attitude is uncooperative and angry. Patient appears distractible and does not relate well to this interviewer. Language production is spontaneous. Rate is pressured and volume is loud ( screaming). Articulation is clear. Patient reports mood as irritable with congruent and expansive affect. Patients thought process is disorganized, non- linear, illogical, with loose associations, tangential thought. Patient does not report suicidal/homicidal thoughts, ideas, or plans. Patient reports auditory hallucinations, denies visual hallucinations. Patient denies delusions. Patient does not appear to be attending to internal stimuli. Patients attention and concentration are poor. Patient is oriented to person, place, time. Patients insight is poor. Patients judgment is poor. No evidence of gross cognitive dysfunction at any point during the interview. No evidence of apparent dysfunction in recent or remote memory. SUBSTANCE ABUSE BRIEF INTERVENTION: Brief intervention regarding the risks of methamphetamine abuse is provided to patient with goal to reduce the risk of harm that could result from the continued use of methamphetamine, with the general aim to investigate the problem, raise awareness of problem, develop a solution with the patient, recommend a specific change or activity, and motivate the patient toward change. Assess substance abuse behavior and give supportive advice about harm reduction, recommend a reduction in hazardous/at- risk consumption patterns, and facilitate referrals for additional specialized treatment with long term care phlebotomist. Intermediate goal is for the patient to quit methamphetamine and engage in substance abuse treatment. Intervention focus on intermediate goals to allow for more immediate success in the treatment process to keep the patient motivated. Review following with patient: Methamphetamine use risks: Short-term: insomnia, irritability, aggressive behavior, hallucinations, delusions, intellectual deficits, anxiety, depression, convulsions, damage to blood vessels in the brain causing strokes, high fevers, collapse of the circulatory system. Long-term: damage to nerve pathways, maybe irreversibly; overstimulation to dopamine impairing dopamine transport and reducing efficiency of dopamine receptors, the reward system becomes worn out, leading to inability to experience pleasure for years. - Time Spent With Patient Time Spent With Patient: 30 minutes, met with patient individually. - Pending Discharge Pending Discharge Within 24 Hours: No Pending Discharge Within 48 Hours: No ICD10 Worksheet Patient Problems: Problems Problem Status Onset Suicidal ideation Acute Schizoaffective disorder, bipolar type Chronic Cannabis use disorder, severe, dependence Acute Homelessness Acute Neck malignant neoplasm Acute Stimulant use disorder Acute
[2018-04-28] MEDS ORDERED: risperiDONE 1 MG TAB PO SCH (09:00)
--- NOTE | 2018-04-28 13:22 | ASMTCMCOM ---
CM Note CM Note Notes: Pt. reports feeling "alright, just got a headache". Pt. reports sleeping "okay". Pt. stated he is eating well. Pt. stated "seems like they've been issues with doctor making changes". Pt. stated he wants to go to [place], stating "used to live there before". Pt. stated he would go to [place] or [place]. Pt. stated he is currently having suicidal thoughts, rating them a 10/10, adding he has a plan but didn't want ot discuss it. Pt. did contract for safety. Pt. presents as alert, with his head in his hands, guarded, passive and a bit delayed answering questions. Staff report pt. sleeping 12 hours and refusing his Depakote. Date Signed: 04/28/2018 01:21 PM Electronically Signed By:Mary Kate Guzman
--- NOTE | 2018-04-28 13:46 | ASMTBHDC ---
Notes Note: Notes: [facility] supervior of discharge planning Leobardo, , requested to be contacted in relation to pt's discharge planning. Date Signed: 04/28/2018 01:45 PM Electronically Signed By:Mary Kate Guzman
[2018-04-28] MEDS: NICOTINE POLACRILEX 2 MG GUM B PRN ×2 (16:05→18:18)
[2018-04-28] MEDS: DIVALPROEX ER 500 MG TAB PO SCH (21:35)
[2018-04-29] MEDS: QUEtiapine FUMARATE 100 MG TAB PO SCH ×2 (09:06→20:53)
[2018-04-29] MEDS: NICOTINE POLACRILEX 2 MG GUM B PRN ×2 (15:55→20:53)
--- NOTE | 2018-04-29 17:53 | SOAPPROG ---
SOAP Progress Note Assessment/Plan: Assessment: Per Jeffrey Hodges's note: Assessment: Schizoaffective disorder, currently depressed and psychotic. Stimulant use disorder, severe. Stimulant withdrawal. No improvement noted. (see subjective/ objective note). Patient is not safe to discharge at this time as patient continues to exhibit signs of acute psychosis, and express depression, psychotic symptoms, and suicidal ideation with plan to cut himself with boxcutter. Patient requires continued inpatient care because of current psychosis and suicidal ideation, and requires inpatient level of care to stabilize in order to no longer be a danger to himself and gravely disabled due to mental illness. Patient could benefit from continued inpatient hospitalization for crisis stabilization, safety, and medication evaluation. Plan: 04/29/18 17:50 1. Patient states he still wants to go to [place], even though he has no providers there and no social support. MD encourages patient to get connected with services here in [place] and postpone any decisions about relocating until he is more stable. 2. Denies any psychotic sxs. 3. CC checking about f/u appt at [facility] for neck growth. Subjective: Patient slept 8.5 hrs last night, ate 100% of meals today. He isolates in room most of the day, declines to attend groups. He claims to feel sad b/c he doesn' t have the money to travel to [place], but denies any intent or plan to hurt himself. Objective: Vital Signs Temp Pulse Resp BP Pulse Ox 36.5 C 84 16 119/76 96 04/29/18 06:00 04/29/18 06:00 04/29/18 06:00 04/29/18 06:00 04/29/18 06:00 MSE: Affect: Sad Mood: "Depressed" TP: Linear TC: Denies any intent or plan to hurt himself Insight/Judgment: Poor - Time Spent With Patient Time Spent With Patient: 15" - Pending Discharge Pending Discharge Within 24 Hours: No Pending Discharge Within 48 Hours: Yes Pending Discharge Date: 05/01/18 (Likely to d/c on Tuesday once aftercare in place) Pending Discharge Time: 11:00 ICD10 Worksheet Patient Problems: Problems Problem Status Onset Suicidal ideation Acute Schizoaffective disorder, bipolar type Chronic Cannabis use disorder, severe, dependence Acute Homelessness Acute Neck malignant neoplasm Acute Stimulant use disorder Acute
[2018-04-29] MEDS: DIVALPROEX ER 500 MG TAB PO SCH (20:53)
[2018-04-30] MEDS: QUEtiapine FUMARATE 100 MG TAB PO SCH ×2 (08:18→21:04)
[2018-04-30] MEDS: NICOTINE POLACRILEX 2 MG GUM B PRN ×3 (08:19→12:34)
--- NOTE | 2018-04-30 19:08 | SOAPPROG ---
SOAP Progress Note Assessment/Plan: Assessment: Per Jeffrey Hodges's note: Assessment: Schizoaffective disorder, currently depressed and psychotic. Stimulant use disorder, severe. Stimulant withdrawal. No improvement noted. (see subjective/ objective note). Patient is not safe to discharge at this time as patient continues to exhibit signs of acute psychosis, and express depression, psychotic symptoms, and suicidal ideation with plan to cut himself with boxcutter. Patient requires continued inpatient care because of current psychosis and suicidal ideation, and requires inpatient level of care to stabilize in order to no longer be a danger to himself and gravely disabled due to mental illness. Patient could benefit from continued inpatient hospitalization for crisis stabilization, safety, and medication evaluation. Plan: 04/29/18 17:50 1. Patient states he still wants to go to [place], even though he has no providers there and no social support. MD encourages patient to get connected with services here in [place] and postpone any decisions about relocating until he is more stable. 2. Denies any psychotic sxs. 3. CC checking about f/u appt at [facility] for neck growth. 04/30/18 19:04 1. Patient refused VPA on 04/27/18, but has taken it the past 2 nights. Unlikely his VPA is at therapeutic levels yet. Will need to have level checked by outpatient provider after he leaves, so dose can be adjusted if necessary. 2. Denies any psychotic sxs. No change to Seroquel. 3. Patient still has SI, but no plan or intent to act on thoughts. 4. Needs f/u appts at [facility] and at [facility]. Subjective: Patient isolates in his room and sleeps most of the day. He has not attended any groups all weekend. He denies any AH/VH. He reports he still thinks about dying, but denies any plan or intent to act on these thoughts. Objective: Vital Signs Temp Pulse Resp BP Pulse Ox 36.7 C 82 16 102/68 94 04/30/18 06:00 04/30/18 06:00 04/30/18 06:00 04/30/18 06:00 04/30/18 06:00 MSE: Affect: Flat Mood: "OK" TP: Linear TC: Still has SI, but denies plan or intent Insight/Judgment: Improving - Time Spent With Patient Time Spent With Patient: 15" - Pending Discharge Pending Discharge Within 24 Hours: Yes Pending Discharge Within 48 Hours: No Pending Discharge Date: 05/01/18 (Possible d/c Mon or Tue once f/u appts confirmed) Pending Discharge Time: 11:00 ICD10 Worksheet Patient Problems: Problems Problem Status Onset Suicidal ideation Acute Schizoaffective disorder, bipolar type Chronic Cannabis use disorder, severe, dependence Acute Homelessness Acute Neck malignant neoplasm Acute Stimulant use disorder Acute
[2018-04-30] MEDS: DIVALPROEX ER 500 MG TAB PO SCH (21:04)
[2018-05-01] MEDS: NICOTINE POLACRILEX 2 MG GUM B PRN ×3 (03:12→14:43)
[2018-05-01 07:06] VITALS: BP 93/61
[2018-05-01] MEDS: QUEtiapine FUMARATE 100 MG TAB PO SCH ×2 (08:48→08:50)
--- NOTE | 2018-05-01 09:18 | BDS ---
REASON FOR ADMISSION: From the ED note dated 04/26/2018, the patient is homeless with a history of schizoaffective disorder, history of methamphetamine use. Three days ago, the patient took a bus to the ER complaining of worsening depression with plan to lacerate wrist. The patient denied attempts. Denied hallucinations. Denied alcohol use. The patient denied self-injurious behavior. The patient denied complaints of physical pain in the ER. The patient was admitted involuntarily on an M1 hold due to being a danger to himself. The patient was admitted for safety, crisis stabilization, and medication management. ADMITTING DIAGNOSIS: 1. Schizoaffective disorder, bipolar type. 2. Stimulant use disorder. 3. Cannabis use disorder, severe. 4. Malingering. 5. Homelessness. ADMISSION PHYSICAL EXAM: The patient was seen on 04/26/2018, for a hospitalist H and P consult for medical clearance for inpatient Behavioral Health stay. The patient was medically cleared for inpatient psychiatric hospitalization and treatment. For further details, please refer to hospitalist's H and P consult dated 04/26/2018. ADMISSION LABS: CBC from 04/26/2018, within normal limits except eosinophils were low at 0.0. Basophils were low at 0.2, and absolute eosinophils were low at 0.00. BMP from 04/26/2018, within normal limits except BUN was elevated at 25. Glucose is elevated at 104. Toxicology screen from 04/26/2018, was negative for substances tested and was negative for ethyl alcohol. Valproic acid level from 04/27/2018, was 55.3. MAJOR PROCEDURES OR TESTS: None. HOSPITAL COURSE: The most prominent symptoms and behaviors while the patient was here were withdrawn. The patient remained the majority of the time in his room sleeping. The patient did come out for meals. The patient had a flat affect. The patient did sleep the majority of his hospitalization. This is likely due to recent methamphetamine use and patient experiencing methamphetamine withdrawal symptoms. The patient did report severe depression and suicidal ideation at time of admission. The patient did improve and was no longer reporting suicidal ideation and did report that his depression had improved since time of admission. Treatment modalities utilized throughout the patient's hospitalization were milieu and group therapy. Depakote ER 1500 mg p.o. q.h.s. was continued to target mood symptoms, was tolerated with no report of side effects and with good response. The patient reported poor response from Risperdal. Risperdal 1 mg p.o. b.i.d. was started at time of admission. The patient reported poor response to this medication and requested the medication be switched to Seroquel. The patient reported that he has had good response from Seroquel in the past. Seroquel 100 mg p.o. b.i.d. was started to target mood and psychosis symptoms; it was tolerated with no report of side effects and with good response. At time of discharge, the patient agreed to dose Seroquel all at bedtime with dose of 200 mg p.o. q.h.s. The patient has improved considerably with no signs of psychiatric symptoms and no psychiatric symptoms expressed at discharge. The patient reports he has improved since admission, states to be in stable condition, feels safe to discharge, and he contracts for safety. Patient's response to treatment was good. There were no adverse or unexpected results of treatment. The patient was safe throughout his stay and was appropriate with staff and other patients. The patient did remain withdrawn to his room for the majority of his stay and only came out to eat meals. The patient met with the treatment team prior to discharge, to assess readiness to discharge and review discharge plan. The treatment team consensus is the patient is in stable condition, has a safe discharge plan, and is ready to discharge today. CONDITION AT DISCHARGE: Patient is in stable condition and is no longer a danger to self or others, and is not gravely disabled due to mental illness. Patient is no longer in need of inpatient level of care, and can be safely and effectively treated within the community. The patients level of risk at time of discharge is low. MSE: The patient is casually dressed and with good hygiene , and looks stated age. Patient is sitting, posture is upright, and position is relaxed. Patient appears awake, alert, and responds appropriately and reasonably during interview. Patient is engaged, relates well to interviewer, and emotional facial expression is appropriate to situation and changes appropriately with topic. Patient is cooperative, makes comfortable eye contact , and movements are voluntary, deliberate, coordinated, and smooth and even with no inappropriate movements. Patient makes laryngeal sounds effortlessly and shares conversation appropriately; pace of conversation is appropriate, and stream of talking is fluent; articulation is clear and understandable; word choice is effortless and appropriate for education level; completes sentences, occasionally pausing to think; rate and volume are appropriate for interview and setting. Patient reports mood as euthymic. Patients affect is stable with full variable range, congruent with mood, and appropriate to speech and circumstances. Patient has linear and logical thinking, with no loose associations, tangential thought, thought blocking, concrete thinking, or any other signs of formal thought disorder. Patient denies suicidal and homicidal ideation, and denies hallucinations and delusions. Patient appears to be a reliable historian with sound judgement and good insight into current condition. Patient has no apparent dysfunction in recent or remote memory noted , and no evidence of gross cognitive dysfunction noted at any point during the interview. DISCHARGE DIAGNOSES: 1. Schizoaffective disorder, bipolar type. 2. Stimulant use disorder. 3. Cannabis use disorder, severe. 4. Malingering. 5. Homelessness. CURRENT MEDICATIONS: After reviewing options, risks, and benefits, the patient agrees to continue Seroquel 200 mg p.o. q.h.s. and Depakote ER 1500 mg p.o. q.h.s. The patient requests prescriptions for these medications at time of discharge, and patient requests Depakote to be dosed in 250 mg tablets, as this is easy for him to swallow. Prescriptions for these medications are provided for 30 days. The prescriptions are reviewed with the patient at time of discharge to ensure accuracy and patient understanding. DISPOSITION: The patient left hospital independently and voluntarily with plans to go to the [facility] and also has plans to follow up at [facility]. FOLLOWUP: distance learning coordinator reports the appropriate outpatient follow-up services have been established and outpatient appointments have been scheduled. The patient received written instructions with times and dates of outpatient follow-up appointments. The following follow-up recommendations were provided to the patient at discharge: Continue psychotropic medications as prescribed and attend appointments as scheduled. Report any side effects to a psychiatric outpatient provider, a primary care provider, or other health janitor caretaker. Address any questions or problems concerning the psychotropic medications with a psychiatric outpatient provider, a primary care provider, or other health janitor caretaker. Contact [facility] or [facility], or go to the nearest emergency room, if you are ever a danger to yourself/others, or unable to care for yourself. As soon as possible, establish a routine medication management treatment with a psychiatric provider, establish routine therapy appointments, and follow-up with a primary care provider. SUBSTANCE ABUSE BRIEF INTERVENTION: Brief intervention regarding the risks of cannabis and methamphetamine abuse is provided to patient with goal to reduce the risk of harm that could result from the continued use of cannabis and methamphetamine, with the general aim to investigate the problem, raise awareness of problem, develop a solution with the patient, recommend a specific change or activity, and motivate the patient toward change. Assess substance abuse behavior and give supportive advice about harm reduction, recommend a reduction in hazardous/at-risk consumption patterns, and facilitate referrals for additional specialized treatment with health careers instructor. Intermediate goal is for the patient to quit and attend outpatient substance abuse treatment. Intervention focus on intermediate goals to allow for more immediate success in the treatment process to keep the patient motivated. Review following with patient: Cannabis use risks: Short-term use: impaired short-term memory, impaired motor coordination, altered judgement, in high doses paranoia and psychosis. Long-term use addiction, diminished life satisfaction and achievement, symptoms of chronic bronchitis, and increased risk of chronic psychosis disorders if predisposition to such disorders. In withdrawal anger, aggression irritability, anxiety and nervousness, decreased appetite or weight loss, restlessness, and sleep difficulties with strange dreams. Methamphetamine use risks: Short-term: insomnia, irritability, aggressive behavior, hallucinations, delusions, intellectual deficits, anxiety, depression , convulsions, damage to blood vessels in the brain causing strokes, high fevers , collapse of the circulatory system. Long-term: damage to nerve pathways, maybe irreversibly; overstimulation to dopamine impairing dopamine transport and reducing efficiency of dopamine receptors, the reward system becomes worn out, leading to inability to experience pleasure for years. OUTPATIENT SUBSTANCE ABUSE TREATMENT: Patient referred to outpatient provider and treatment for continued treatment related to substance abuse. LEGAL COURSE: The patient was admitted on an M1 hold for involuntary inpatient psychiatric hospitalization. The patient became voluntary during his stay. The patient discharged today independently and voluntarily. ATTITUDE AT TIME OF DISCHARGE: The patients attitude was positive at time of discharge, and patient reports looking forward to discharging today. The patient reports he feels safe to discharge, is no longer a danger to himself or others, is in stable condition, and contracts for safety. Patient states he will continue medications as prescribed, and establish medication management treatment with an outpatient provider after discharge. Patient reports he understands the information that has been provided to him, and he understands, accepts, and agrees to psychotropic medications. Patient describes internal protective factors as the coping skills he has learned while hospitalized here, and he plans to continue to practice these coping skills after discharge. LABS AND RADIOLOGY STUDIES: There were no pending labs or studies at time of discharge. ADVANCE DIRECTIVES: There were no advance directives on file, and patient was full code during this hospitalization. The following psychotropic medication treatment informed consent and recommendations were provided to the patient at time of discharge. Patient reports he understands, accepts, and agrees to the information that has been provided. PSYCHOTROPIC MEDICATION TREATMENT INFORMED CONSENT and RECOMMENDATIONS: Review nature of condition, diagnosis, and prognosis. Review nature and purpose of psychotropic medication treatment. Review type of psychotropic medications being prescribed. Review risk and benefits of psychotropic medication treatment. Review probable length of time will need to take medications. Review risk and benefits of not undergoing psychotropic medication treatment. Review alternative treatments to psychotropic medications. Review psychotropic medications contraindications, side effects, and importance of reporting any side effects to a psychiatric provider, primary care provider, or other health janitor caretaker. Review importance of him asking a psychiatric provider or primary care provider any questions or problems concerning the psychotropic medications. Review safety plan and the importance to contact [facility] or [facility] , or go to the nearest emergency room, if ever a danger to yourself/others, or unable to care for yourself. Recommend upon discharge to establish routine medication management treatment with a psychiatric provider, establish routine therapy appointments, and follow-up with a primary care provider. Verify patient understands, accepts, and agrees to the information that has been provided. /[id number]/MODL MTDD
--- NOTE | 2018-05-01 14:29 | ASMTBHDC ---
Notes Note: Notes: Pt. is scheduled to discharge today. Pt. stated he can get himself to his follow up appointments. CC provided pt with a bus pass and reserved a bed at the [facility] for pt. Pt's follow up appointments are: [facility] [address] [place] [address] Next appointment: Tuesday (05/02/18) at 1:00pm, please check in at 12:45pm for Ahsan Brock (telehealth provider) Next Care Coordination appointment: Tuesday (05/09/18) at 10:30am, please check in at 10:15am for Yoana Barreto There are walk in caregiver assisted living hours Tue-Tue. at [address] [facility] from 9-11:30 a.m. and all weekdays but on from 12:30-[address] Jan [facility], [address] [place] [id number] Next appointment: Tuesday (05/08/18) @ 4:00pm (Bring photo ID and insurance card) Date Signed: 05/01/2018 02:28 PM Electronically Signed By:Mary Kate Guzman
== END 2018-05-01 15:50 | disposition home or self-care (01) | DRG 885 ==
LOC: BBEH 19:05
PROVIDERS: ADMIT Registered Nurse; ATTEND Registered Nurse
DX: F25.0 Schizoaffective disorder, bipolar type (principal); F15.90 Other stimulant use, unspecified, uncomplicated; F12.90 Cannabis use, unspecified, uncomplicated; I10 Essential (primary) hypertension; K21.9 Gastro-esophageal reflux disease without esophagitis; F17.210 Nicotine dependence, cigarettes, uncomplicated; B19.20 Unspecified viral hepatitis C without hepatic coma; Z76.5 Malingerer [conscious simulation]; Z59.0 Homelessness
CPT/HCPCS: 80305; G0480